=== PATIENT | female | born 1930 | race Caucasian/White ===

== ENCOUNTER 2020-08-18 13:38 | Inpatient (IN) | payer OTHER ==
--- NOTE | 2020-08-18 13:46 | PDOC ---
Rapid Medical Evaluation Medical Evaluation: 08/18/20 13:47 Pt was sent to the ER from urgent care for chest pain and shortness of breath for intermittent chest pain for the past month. New heart murmur heard in UC Exam: 2+ systolic murmur heard over the 2-3 b/l lateral rib space. S1 S2 present. RRR. Lungs CTAB Orders: labs, EKG Pt to proceed to the ER for further evaluation Discharge Disposition - Diagnosis Shortness of breath - Referrals - Patient Instructions - Post Discharge Activity
--- NOTE | 2020-08-18 15:03 | PDOC ---
History of Present Illness - General Chief Complaint: Shortness of Breath Stated Complaint: SOB Time Seen by Provider: 08/18/20 13:46 History Source: Patient Exam Limitations: No Limitations - History of Present Illness Initial Comments: 08/18/20 15:52 89F with PMH of HTN presents to the ED with worsening SOB over the past month, worse on exertion and associated with chest discomfort. She also reports worsening LE edema bilaterally. She denied fevers/chills, syncope, cough, h emoptysis, n/v, orthopnea, PND, abdominal pain. No hx/o of blood clots. PMH: as in HPI SH: see below Meds: atenolol Allergies: NKDA Tob/Etoh/Rec drugs: neg x3 PCP: none currently ROS GENERAL/CONSTITUTIONAL: No fever or chills. No weakness. HEENT: No change in vision. No ear pain or discharge. No sore throat. CARDIOVASCULAR: +chest pain, +shortness of breath RESPIRATORY: No cough, wheezing, or hemoptysis. GASTROINTESTINAL: No nausea, vomiting, diarrhea or constipation. GENITOURINARY: No dysuria, frequency, or change in urination. MUSCULOSKELETAL: No joint or muscle swelling or pain. No neck or back pain. SKIN: No rash NEUROLOGIC: No headache, vertigo, loss of consciousness, or change in strength/sensation. ENDOCRINE: No increased thirst. No abnormal weight change HEMATOLOGIC/LYMPHATIC: No anemia, easy bleeding, or history of blood clots. ALLERGIC/IMMUNOLOGIC: No hives or skin allergy. PE GENERAL: Awake, alert, and fully oriented; no acute distress HEAD: No signs of trauma, normocephalic, atraumatic EYES: PERRLA, EOMI, sclera anicteric, conjunctiva clear ENT: Auricles normal inspection, hearing grossly normal, nares patent, moist mucosa, oropharynx clear without exudates. NECK: Normal ROM, supple, no LAD, JVD, or masses HEART: Regular rate and rhythm, normal S1/S2, systolic murmur that radiates to the carotids bilaterally LUNGS: No distress, speaks full sentences, clear to auscultation bilaterally ABDOMEN: Soft, nontender. No guarding, no rebound. No masses EXTREMITIES: Normal inspection, Normal range of motion. +1 pitting edema LE bilaterally. No clubbing or cyanosis. NEUROLOGICAL: Normal speech, no focal sensorimotor deficits SKIN: Warm, Dry, normal turgor, no rashes or lesions noted Assessment and Plan 1. aortic stenosis 2. new onset CHF 2/2 3. ACS r/o 4. PE Italo Collins, PGY1 Emergency Medicine Past History - Medical History Allergies/Adverse Reactions: Allergies Allergy/AdvReac Type Severity Reaction Status Date / Time No Known Allergies Allergy Verified 08/18/20 15:44 COPD: No - Psycho-Social/Smoking History Smoking History: Never smoked Have you smoked in the past 12 months: No - Substance Abuse Hx (Audit-C & DAST Scrn) How often the patient has a drink containing alcohol: Never Score: In Men: 4 or > Positive; In Women: 3 or > Positive: 0 Screen Result (Pos requires Nsg. Audit-10AR): Negative In the last yr the pt used illegal drug/Rx for NonMed reason: No Score: Yes response is considered Positive: 0 Screen Result (Positive result requires Nsg. DAST-10): Negative *Physical Exam - Vital Signs Last Vital Signs Temp Pulse Resp BP Pulse Ox 97.6 F 77 16 167/62 100 08/18/20 13:45 08/18/20 13:45 08/18/20 13:45 08/18/20 13:45 08/18/20 13:45 ED Treatment Course - LABORATORY CBC & Chemistry Diagram: 08/18/20 15:40 08/18/20 15:40 Medical Decision Making - Medical Decision Making 08/18/20 16:03 89F with PMH of HTN presents to the ED with worsening SOB over the past month, worse on exertion and associated with chest discomfort. She also reports worsening LE edema bilaterally. No hx/o of blood clots. Systolic murmur auscultated that radiated to carotids bilaterally. DDx: 1. aortic stenosis 2. new onset CHF 2/2 - dyspnea with LE edema 3. ACS r/o - trop, EKG 4. PE - Low Risk Well's score, but not PERC neg Labs notable for: -CBC, coags, CMP unremarkable -trop neg -BNP wnl Pt will be admitted for symptomatic aortic stenosis. Discharge - Discharge Information Problems reviewed: Yes Clinical Impression/Diagnosis: Shortness of breath Aortic stenosis Qualifiers: Cardiac valve disease etiology: etiology unspecified Qualified Code(s): I35.0 - Nonrheumatic aortic (valve) stenosis Condition: Stable - Admission Yes - Follow up/Referral Referrals: Ar Martinez MD [Primary Care Provider] - - Patient Discharge Instructions - Post Discharge Activity
--- NOTE | 2020-08-18 16:18 | PDOC ---
Documentation entered by Ivett Thomas SCRIBE, acting as scribe for Emeterio Cervantes MD. Emeterio Cervantes MD: This documentation has been prepared by the Martha pablo Xhesika, SCRIBE, under my direction and personally reviewed by me in its entirety. I confirm that the documentation accurately reflects all work, treatment, procedures, and medical decision making performed by me. Attending Attestation - Resident Resident Name: Italo Collins - ED Attending Attestation I have performed the following: I have examined & evaluated the patient, The case was reviewed & discussed with the resident, I agree w/resident's findings & plan, Exceptions are as noted - HPI HPI: 08/18/20 15:52 The patient is a 89 year old female with a PMH of HTN who presents to the ED for 1 month of SOB and chest discomfort, progressively worsening. Pt also reports worsening BLE edema. The patient denies headache or dizziness. Denies fever, chills, cough, nausea, vomiting, and constipation. Denies dysuria, frequency, urgency and hematuria. Allergy: NKDA Social: Denies alcohol, cigarette or drug use. - Physicial Exam PE: 08/18/20 16:26 Vitals: Triage Vital signs reviewed General Appearance: No acute distress, well nourished well developed, Head: Atraumatic, Neck: Supple; no Nucal rigidity Chest Wall: Nontender Cardiac: Regular rate and rhythym, PRANAY Lungs: Clear to auscultation bilateral, good air movement bilaterally, Abdomen: Soft, non distended, normal bowel sounds, non tender to palpation Extremities: Full range of motion to all extremities, no cyanosis, clubbing, or edema Skin: Warm and dry, no rashes or lesions, no rash, no petechiae Psych: Normal mood, normal affect - Medical Decision Making 08/18/20 16:27 89 years old past medical history significant for hypertension presents to the ED with shortness of breath chest discomfort exertional Will admit to medicine for evaluation of aortic stenosis echo serial troponins cardiology consultation and further management. Placed Discharge - Discharge Information Problems reviewed: Yes Clinical Impression/Diagnosis: Shortness of breath Aortic stenosis Qualifiers: Cardiac valve disease etiology: etiology unspecified Qualified Code(s): I35.0 - Nonrheumatic aortic (valve) stenosis Condition: Stable Disposition: HOME - Admission No - Follow up/Referral - Patient Discharge Instructions - Post Discharge Activity
[2020-08-18 16:24] LABS: BASO % 0.4 % (0-2.0); HEMATOCRIT 39.4 % (32.4-45.2); HEMOGLOBIN 13.2 GM/dL (10.7-15.3); LYMPH % 32.8 % (8-40); MCH 30.7 pg (25.7-33.7); MCHC 33.5 g/dl (32.0-36.0); MEAN CELL VOLUME 91.7 fl (80-96); MEAN PLT VOLUME 10.1 fl (7.5-11.1); NEUT % 54.8 % (42.8-82.8); PLATELET COUNT 156 K/MM3 (134-434); RBC 4.29 M/mm3 (3.60-5.2); RDW 14.3 % (11.6-15.6); WHITE BLOOD COUNT 7.2 K/mm3 (4.0-10.0)
[2020-08-18 16:29] LABS: INR 0.97 (0.83-1.09); PROTHROMBIN TIME (PATIENT) 11.4 SEC (9.7-13.0)
[2020-08-18 16:48] LABS: ALBUMIN 3.5 g/dl (3.4-5.0); ALK PHOS 60 U/L (45-117); ANION GAP 6 MMOL/L (8-16); BLOOD UREA NITROGEN 19.2 mg/dL (7-18); CHLORIDE 106 mmol/L (98-107); CO2 29 mmol/L (21-32); GLUCOSE,RANDOM 71 mg/dL (74-106); POTASSIUM 4.1 mmol/L (3.5-5.1); SGOT/AST 18 U/L (15-37); SGPT/ALT 21 U/L (13-61); SODIUM 140 mmol/L (136-145); TOT PROT 6.9 g/dl (6.4-8.2)
[2020-08-18 17:03] LABS: BILIRUBIN,TOTAL 0.2 mg/dL (0.2-1)
[2020-08-18 17:30] LABS: N-TERMINAL BNP 438.8 pg/ml (5-450)
--- NOTE | 2020-08-18 19:32 | HP ---
CHIEF COMPLAINT: SOB and chest pain PCP: None HISTORY OF PRESENT ILLNESS: Ms. Miles is an 89F w a h/o of HTN who presents to the ED for 1 month of SOB and chest discomfort. The patient reported coming to the emergency department because she felt fatigued and her daughter advised her to arrive to the ED. The patient reports the chest pain to be substernal and without radiation. The patient reports the pain to come on only when she is walking. The patient reports that the pain resolved with rest. The patient reports that she is only capable of walking at a slow controlled pace for a few minutes and can climb a few steps but at a slow pace. The patient denies coughing and denies orthopnea. The patient denies headache or dizziness. Denies fever, chills, cough, nausea, vomiting, and constipation. Denies dysuria, frequency, urgency and hematuria. ER course was notable for: (1) CXR revealing a large hiatal hernia (2) (3) Recent Travel: denies PAST MEDICAL HISTORY: denies PAST SURGICAL HISTORY: denies Social History: Smoking:none Alcohol: none Drugs: none Allergies none No Known Allergies Allergy (Verified 08/18/20 15:44) HOME MEDICATIONS: REVIEW OF SYSTEMS CONSTITUTIONAL: Absent: fever, chills, diaphoresis, generalized weakness, malaise, loss of appetite, weight change HEENT: Absent: rhinorrhea, nasal congestion, throat pain, throat swelling, difficulty swallowing, mouth swelling, ear pain, eye pain, visual changes CARDIOVASCULAR: CP Absent: syncope, palpitations, irregular heart rate, lightheadedness, peripheral edema RESPIRATORY: Absent: cough, shortness of breath, dyspnea with exertion, orthopnea, wheezing, stridor, hemoptysis GASTROINTESTINAL: Absent: abdominal pain, abdominal distension, nausea, vomiting, diarrhea, constipation, melena, hematochezia PHYSICAL EXAMINATION Vital Signs - 24 hr 08/18/20 08/18/20 08/18/20 13:45 17:35 17:36 Temperature 97.6 F 97.8 F Pulse Rate 77 Pulse Rate [ 79 Apical] Respiratory 16 18 Rate Blood Pressure 167/62 Blood Pressure 105/59 L [Right Arm] O2 Sat by Pulse 100 100 100 Oximetry (%) GENERAL: Awake, alert, and fully oriented, in no acute distress. HEAD: Normal with no signs of trauma. LUNGS: Breath sounds equal, clear to auscultation bilaterally. No wheezes, and no crackles. No accessory muscle use. HEART: Crecendo-decrecendo murmur 1/5 heard in LORI border ABDOMEN: Soft, nontender, not distended, normoactive bowel sounds, no guarding, no rebound, no masses. No hepatomegaly or splenomegaly. UPPER EXTREMITIES: 2+ pulses, warm, well-perfused. No cyanosis. No clubbing. No peripheral edema. LOWER EXTREMITIES: 2+ pulses, warm, well-perfused. No calf tenderness. No peripheral edema. Laboratory Results - last 24 hr 08/18/20 08/18/20 08/18/20 15:40 15:40 15:40 WBC 7.2 RBC 4.29 Hgb 13.2 Hct 39.4 MCV 91.7 MCH 30.7 MCHC 33.5 RDW 14.3 Plt Count 156 MPV 10.1 Absolute Neuts (auto) 4.0 Neutrophils % 54.8 Lymphocytes % 32.8 Monocytes % 11.0 H Eosinophils % 1.0 Basophils % 0.4 Nucleated RBC % 0 PT with INR 11.40 INR 0.97 Sodium 140 Potassium 4.1 Chloride 106 Carbon Dioxide 29 Anion Gap 6 L BUN 19.2 H Creatinine 1.0 Est GFR (CKD-EPI)AfAm 58.25 Est GFR (CKD-EPI)NonAf 50.26 Random Glucose 71 L Calcium 9.0 Total Bilirubin 0.2 AST 18 ALT 21 Alkaline Phosphatase 60 Creatine Kinase 88 Troponin I < 0.02 B-Natriuretic Peptide 438.8 Total Protein 6.9 Albumin 3.5 ASSESSMENT/PLAN: Ms. Miles is an 89F w a h/o of HTN who presents to the ED for SOB and chest discomfort. The patient is admitted to the hospital for dyspnea on exertion and chest pain. #Dyspnea on exertion secondary to possible Aortic Stenosis vs acute on chronic CHF admit to tele one month of SOB and dyspnea on exertion able to walk few steps and climb a few steps before fatiguing repeat ekg consulting [facility] echo ordered Lipid panel BNP 490s will monitor for heart failure symptoms #ACS troponin negative x1 will follow up Will check TSH for reports of hair loss and weight gain #Gerd secondary to hiatal hernia ppi protonix outpatient GI referral #? HTN will monitor bp 105/59 will suggest lisinopril 10 if pressures rise A1C #DVT ppx SQ lovenox Family Medical History Family History: As Documented Visit type - Medication Review Med list reviewed for High Risk Meds patients 65 and older: Yes - Emergency Visit Emergency Visit: Yes ED Registration Date: 08/18/20 Care time: The patient presented to the Emergency Department on the above date and was hospitalized for further evaluation of their emergent condition. - New Patient This patient is new to me today: Yes Date on this admission: 08/18/20 - Critical Care Critical Care patient: No ATTENDING PHYSICIAN STATEMENT I saw and evaluated the patient. I reviewed the resident's note and discussed the case with the resident. I agree with the resident's findings and plan as documented. SUBJECTIVE: OBJECTIVE: ASSESSMENT AND PLAN:
--- NOTE | 2020-08-18 20:00 | PN ---
Teaching Attending Note Name of Resident: Momo Nguyen ATTENDING PHYSICIAN STATEMENT I saw and evaluated the patient. I reviewed the resident's note and discussed the case with the resident. I agree with the resident's findings and plan as documented. SUBJECTIVE: 89yoF with history of hypertension not on medications who presents for eval uation of progressive dyspnea on exertion and chest discomfort x1 month. Chest pain has been with exertion only. Denies palpitations, lightheadedness, syncope, orthopnea, or cough but notes recent weight gain and hair loss. She has not seen a doctor for years and is not on any medications. Patient was hemodynamically stable in the ED, in no acute distress. CXR showed large hiatal hernia, no other acute chest pathology. Labs were unremarkable including negative troponin. EKG showed sinus rhythm without acute ST or T wave changes. Admitted for further work up and management. OBJECTIVE: Vital Signs (72 hours) 08/18/20 08/18/20 08/18/20 13:45 17:35 17:36 Temperature 97.6 F 97.8 F Pulse Rate 77 Pulse Rate [ 79 Apical] Respiratory 16 18 Rate Blood Pressure 167/62 Blood Pressure 105/59 L [Right Arm] O2 Sat by Pulse 100 100 100 Oximetry (%) EXAM Gen: awake, alert, NAD. Hair appears dry and brittle HEENT: NC/AT. Moist mucous membranes CV: RRR. 3/6 systolic murmur, radiation to carotids not appreciated. No JVD Resp: CTAB, unlabored breathing Abd: Soft, NT, ND. +BS Ext: No edema Neuro: CN II-XII grossly intact Pysch: AOx3 Laboratory Results - last 24 hr 08/18/20 08/18/20 08/18/20 15:40 15:40 15:40 WBC 7.2 RBC 4.29 Hgb 13.2 Hct 39.4 MCV 91.7 MCH 30.7 MCHC 33.5 RDW 14.3 Plt Count 156 MPV 10.1 Absolute Neuts (auto) 4.0 Neutrophils % 54.8 Lymphocytes % 32.8 Monocytes % 11.0 H Eosinophils % 1.0 Basophils % 0.4 Nucleated RBC % 0 PT with INR 11.40 INR 0.97 Sodium 140 Potassium 4.1 Chloride 106 Carbon Dioxide 29 Anion Gap 6 L BUN 19.2 H Creatinine 1.0 Est GFR (CKD-EPI)AfAm 58.25 Est GFR (CKD-EPI)NonAf 50.26 Random Glucose 71 L Calcium 9.0 Total Bilirubin 0.2 AST 18 ALT 21 Alkaline Phosphatase 60 Creatine Kinase 88 Troponin I < 0.02 B-Natriuretic Peptide 438.8 Total Protein 6.9 Albumin 3.5 Imaging, EKG reviewed in chart ASSESSMENT AND PLAN: 89yoF with history of hypertension not on medications who presents for evaluation of progressive dyspnea on exertion and chest discomfort x1 month. Dyspnea on exertion, chest pain Differential includes symptomatic aortic stenosis, stable angina, and symptomatic hiatal hernia Appears euvolemic on exam, no evidence of acute heart failure Asymptomatic at rest and currently chest pain free Given rapid progression of symptoms, will obtain echo and cardiology consult; may need further work up for CAD pending results - tele - echo - check TSH - cardiology consult Hiatal hernia - trial PPI DVT ppx: Lovenox subq
[2020-08-18 22:57] LABS: CHOLESTEROL 218 mg/dL (50-200); HDL CHOLESTEROL 78 mg/dL (40-60); LDL CHOLESTEROL (ONLY SJRH) 117 mg/dL (5-100); TRIGLYCERIDES 157 mg/dL (0-150)
[2020-08-19 05:25] VITALS: BMI 26.0
[2020-08-19 08:38] LABS: BASO % 0.3 % (0-2.0); EOS % 1.1 % (0-4.5); HEMATOCRIT 37.6 % (32.4-45.2); HEMOGLOBIN 12.5 GM/dL (10.7-15.3); MCH 30.1 pg (25.7-33.7); MCHC 33.3 g/dl (32.0-36.0); MEAN CELL VOLUME 90.5 fl (80-96); MEAN PLT VOLUME 9.6 fl (7.5-11.1); MONO % 10.4 % (3.8-10.2); NEUT % 56.2 % (42.8-82.8); PLATELET COUNT 136 K/MM3 (134-434); RBC 4.15 M/mm3 (3.60-5.2); WHITE BLOOD COUNT 6.7 K/mm3 (4.0-10.0)
[2020-08-19 09:01] LABS: ALBUMIN 3.3 g/dl (3.4-5.0); BILIRUBIN,TOTAL 0.4 mg/dL (0.2-1); BLOOD UREA NITROGEN 20.2 mg/dL (7-18); CALCIUM 8.5 mg/dL (8.5-10.1); MAGNESIUM 2.3 mg/dL (1.8-2.4); PHOSPHOROUS 3.6 mg/dL (2.5-4.9); POTASSIUM 4.1 mmol/L (3.5-5.1); TOT PROT 6.4 g/dl (6.4-8.2)
--- NOTE | 2020-08-19 09:39 | EKG ---
Test Reason : Blood Pressure : / mmHG Vent. Rate : 068 BPM Atrial Rate : 068 BPM P-R Int : 142 ms QRS Dur : 078 ms QT Int : 436 ms P-R-T Axes : 038 -11 026 degrees QTc Int : 463 ms NORMAL SINUS RHYTHM NORMAL ECG WHEN COMPARED WITH ECG OF 18-AUG-2020 13:43, NO SIGNIFICANT CHANGE WAS FOUND Confirmed by Jagdeep Villa ([id number]) on 08/19/2020 9:38:42 AM Referred By: Confirmed By:Jagdeep iVlla
--- NOTE | 2020-08-19 09:42 | PN ---
Teaching Attending Note Name of Resident: Gardenia Grossman ATTENDING PHYSICIAN STATEMENT I saw and evaluated the patient. I reviewed the resident's note and discussed the case with the resident. I agree with the resident's findings and plan as documented. SUBJECTIVE: Patient is feeling better with NAD. patient's daughter at bedside. OBJECTIVE: Vital Signs Temperature 98.0 F 08/19/20 05:23 Pulse Rate 77 08/19/20 05:23 Respiratory Rate 18 08/19/20 05:23 Blood Pressure 151/78 08/19/20 05:23 O2 Sat by Pulse Oximetry (%) 100 08/19/20 05:29 PE: per resident's note CBCD WBC 6.7 K/mm3 (4.0-10.0) 08/19/20 07:56 RBC 4.15 M/mm3 (3.60-5.2) 08/19/20 07:56 Hgb 12.5 GM/dL (10.7-15.3) 08/19/20 07:56 Hct 37.6 % (32.4-45.2) 08/19/20 07:56 MCV 90.5 fl (80-96) 08/19/20 07:56 MCHC 33.3 g/dl (32.0-36.0) 08/19/20 07:56 RDW 14.0 % (11.6-15.6) 08/19/20 07:56 Plt Count 136 K/MM3 (134-434) 08/19/20 07:56 MPV 9.6 fl (7.5-11.1) 08/19/20 07:56 CMP Sodium 142 mmol/L (136-145) 08/19/20 07:56 Potassium 4.1 mmol/L (3.5-5.1) 08/19/20 07:56 Chloride 109 mmol/L (98-107) H 08/19/20 07:56 Carbon Dioxide 28 mmol/L (21-32) 08/19/20 07:56 Anion Gap 5 MMOL/L (8-16) L 08/19/20 07:56 BUN 20.2 mg/dL (7-18) H 08/19/20 07:56 Creatinine 1.0 mg/dL (0.55-1.3) 08/19/20 07:56 Random Glucose 84 mg/dL (74-106) 08/19/20 07:56 Calcium 8.5 mg/dL (8.5-10.1) 08/19/20 07:56 Total Bilirubin 0.4 mg/dL (0.2-1) 08/19/20 07:56 AST 16 U/L (15-37) 08/19/20 07:56 ALT 21 U/L (13-61) 08/19/20 07:56 Alkaline Phosphatase 47 U/L (45-117) 08/19/20 07:56 Total Protein 6.4 g/dl (6.4-8.2) 08/19/20 07:56 Albumin 3.3 g/dl (3.4-5.0) L 08/19/20 07:56 CARDIAC ENZYMES Creatine Kinase 88 U/L (26-192) 08/18/20 15:40 Troponin I < 0.02 ng/ml (0.00-0.05) 08/18/20 21:14 Current Medications Generic Name Dose Route Start Last Admin Trade Name Angelq PRN Reason Stop Dose Admin Enoxaparin Sodium 30 mg 08/19/20 10:00 Lovenox - SQ DAILY [facility] Home Medications Medication Instructions Recorded Aspirin [ASA -] 81 mg PO DAILY 08/19/20 Atenolol [Tenormin -] 50 mg PO DAILY 08/19/20 Laboratory Tests 08/18/20 08/18/20 08/19/20 15:40 21:14 07:56 Hemoglobin A1c % Troponin I < 0.02 < 0.02 Total LDL Cholesterol 117 H HDL Cholesterol 78 H TSH 12.80 H 08/19/20 07:56 Hemoglobin A1c % 5.2 Troponin I Total LDL Cholesterol HDL Cholesterol TSH ASSESSMENT AND PLAN: This patient is an 89yoF with Pmhx of HTN not on medications who presents for evaluation of progressive dyspnea on exertion and chest discomfort x1 month. # Acute over chronic Dyspnea on exertion with chest pain; most likely due to hypothyroidism , will increase the dose of levoxyl to 75mcg daily since TSh is >12 , she is on 50mcg at home #Acute chest pain r/o ACS ; trops are negative so far , cardio consult, follow the echo , discussed with Dr Morris , patient might need TAVR procedure with possible angio. with possible tx to [facility] [place] for further care #Severe Aortic stenosis #Hiatal hernia: PPI DVT ppx: Lovenox subq
--- NOTE | 2020-08-19 09:43 | EKG ---
Test Reason : Blood Pressure : / mmHG Vent. Rate : 076 BPM Atrial Rate : 076 BPM P-R Int : 142 ms QRS Dur : 076 ms QT Int : 404 ms P-R-T Axes : 053 -11 014 degrees QTc Int : 454 ms NORMAL SINUS RHYTHM POSSIBLE LEFT ATRIAL ENLARGEMENT NONSPECIFIC ST ABNORMALITY ABNORMAL ECG NO PREVIOUS ECGS AVAILABLE Confirmed by Jagdeep Villa ([id number]) on 08/19/2020 9:43:11 AM Referred By: Confirmed By:Jagdeep Villa
[2020-08-19] MEDS: ENOXAPARIN NA (PORCINE) 30 MG/0.3 ML DISP.SYRIN SQ SCH (09:48)
--- NOTE | 2020-08-19 10:26 | ECHO ---
Version: 1 Name: BRIAN LEE Exam: Adult Echocardiogram Study Date: 08/19/2020, 8:30 AM Age: 89 Years MMode/2D Measurements & Calculations IVSd: 0.98 cm LVIDs: 2.07 cm LVIDd: 2.8 cm LVPWd: 1.28 cm LAV (MOD-bp): 40.0 ml LVOT diam: 1.83 cm Ao root diam: 2.43 cm LA dimension: 2.14 cm Doppler Measurements & Calculations MV E max sohail: 84.1 cm/sec Med E/e': 27.7 MV A max sohail: 119.5 cm/sec Med Peak E' Sohail: 3.0 cm/sec MV E/A: 0.70 Lat E/e': 29.5 Lat Peak E' Sohail: 2.9 cm/sec MR max P.3 mmHg Ao max P.8 mmHg OH(I,D): 0.73 cm Ao mean P.1 mmHg LV V1 mean: 68.1 cm/sec Ao V2 max: 243.6 cm/sec LV V1 mean P.16 mmHg TR max sohail: 227.3 cm/sec TR max P.8 mmHg Procedure A two-dimensional transthoracic echocardiogram with color flow and Doppler was performed. The patien t was in normal sinus rhythm during the exam. Left Ventricle The left ventricle is normal in size. Left ventricular systolic function is normal. Ejection Fractio n = 65%. The transmitral spectral Doppler flow pattern is suggestive of impaired LV relaxation. Right Ventricle The right ventricle is normal in size and function. Atria The left atrium is moderately dilated. Right atrial size is normal. Mitral Valve There is moderate mitral annular calcification. There is mild mitral regurgitation. Tricuspid Valve The tricuspid valve is normal. There is moderate tricuspid regurgitation. Right ventricular systolic pressure is normal. Aortic Valve Fibrocalcific aortic valve with reduced opening. Likely severe aortic stenosis. The aortic valve are a using continuity equation is 0.75 cm2. However, the aortic valve mean gradient is 13 mmhg. Recommend addit ional dedicated imaging of the aortic valve if indicated. The calculated aortic valve area using the jacob nuity equation is 0.75 cm2. Trace aortic regurgitation. Pulmonic Valve The pulmonic valve leaflets are thin and pliable; valve motion is normal. Trace pulmonic valvular regurgitation. Great Vessels The aortic root is normal size. Normal aortic arch, descending and ascending aorta. Pericardium/Pleura There is no pericardial effusion. Summary Statements Left ventricular systolic function is normal. The transmitral spectral Doppler flow pattern is suggestive of impaired LV relaxation. The right ventricle is normal in size and function. The left atrium is moderately dilated. There is moderate mitral annular calcification. There is mild mitral regurgitation. There is moderate tricuspid regurgitation. Fibrocalcific aortic valve with reduced opening. Likely severe aortic stenosis. The aortic valve area using continuity equation is 0.75 cm2. However, the aortic valve mean gradient is 13 mmhg. Recommend additional dedicated imaging of the aortic valve if indicated. Trace aortic regurgitation. Trace pulmonic valvular regurgitation. MD Nabil Peterson 08/19/2020, 10:25 AM Ordering Physician: Derrick Reza Referring Physician: DERRICK REZA Performed By: Genevieve Saravia
--- NOTE | 2020-08-19 10:36 | CON.CARD ---
Consult Consult Specialty:: Cardiology - History of Present Illness History of Present Illness: Ms. Miles is an 89F w a h/o of HTN who presents to the ED for 1 month of SOB and chest discomfort. The patient reported coming to the emergency department because she felt fatigued and her daughter advised her to arrive to the ED. The patient reports the chest pain to be substernal and without radiation. The patient reports the pain to come on only when she is walking. The patient reports that the pain resolved with rest. The patient reports that she is only capable of walking at a slow controlled pace for a few minutes and can climb a few steps but at a slow pace. The patient denies coughing and denies orthopnea. The patient denies headache or dizziness. Denies fever, chills, cough, nausea, vomiting, and constipation. Denies dysuria, frequency, urgency and hematuria. - History Source History Provided By: Medical Record - Past Medical History Cardio/Vascular: Yes: HTN ...: No - Smoking History Smoking history: Never smoked Have you smoked in the past 12 months: No Home Medications - Allergies Allergies/Adverse Reactions: Allergies Allergy/AdvReac Type Severity Reaction Status Date / Time No Known Allergies Allergy Verified 08/19/20 10:31 - Home Medications Home Medications: Ambulatory Orders Aspirin [ASA -] 81 mg PO DAILY 08/19/20 Atenolol [Tenormin -] 50 mg PO DAILY 08/19/20 Review of Systems - Review of Systems Constitutional: reports: No Symptoms Eyes: reports: No Symptoms HENT: reports: No Symptoms Neck: reports: No Symptoms Cardiovascular: reports: Chest Pain Respiratory: reports: No Symptoms Gastrointestinal: reports: No Symptoms Genitourinary: reports: No Symptoms Breasts: reports: No Symptoms Reported Musculoskeletal: reports: No Symptoms Integumentary: reports: No Symptoms Neurological: reports: No Symptoms Endocrine: reports: No Symptoms Hematology/Lymphatic: reports: No Symptoms Psychiatric: reports: No Symptoms Vital Signs: Vital Signs Temperature 97.5 F L 08/19/20 08:00 Pulse Rate 75 08/19/20 08:00 Respiratory Rate 19 08/19/20 08:00 Blood Pressure 139/82 08/19/20 08:00 O2 Sat by Pulse Oximetry (%) 100 08/19/20 08:00 Constitutional: Yes: Well Nourished, No Distress, Calm Eyes: Yes: WNL, Conjunctiva Clear, EOM Intact HENT: Yes: WNL, Atraumatic, Normocephalic Neck: Yes: WNL, Supple, Trachea Midline Respiratory: Yes: WNL, Regular, CTA Bilaterally Gastrointestinal: Yes: WNL, Normal Bowel Sounds Renal/: Yes: WNL Cardiovascular: Yes: WNL, Regular Rate and Rhythm Heart Sounds: Yes: S1, S2 Murmur: Yes: Systolic Murmur Musculoskeletal: Yes: WNL Extremities: Yes: WNL Integumentary: Yes: WNL Neurological: Yes: WNL, Alert, Oriented ...Motor Strength: WNL Psychiatric: Yes: WNL, Alert, Oriented - Other Data Labs, Other Data: CBC, BMP 08/19/20 07:56 08/19/20 07:56 INR, PTT INR 0.97 (0.83-1.09) 08/18/20 15:40 Troponin, BNP 08/18/20 08/18/20 15:40 21:14 Troponin I < 0.02 < 0.02 B-Natriuretic Peptide 438.8 Troponin, BNP 08/18/20 08/18/20 15:40 21:14 Troponin I < 0.02 < 0.02 B-Natriuretic Peptide 438.8 Imaging - Results Chest X-ray: Image Reviewed (hiatal hernia no i/e) EKG: Image Reviewed (sr wnl) Other: Report Reviewed (ECHO nl ef most likely severe OH 0.75 mean gradient 14mmhg) Problem List - Problems (1) Aortic stenosis Code(s): I35.0 - NONRHEUMATIC AORTIC (VALVE) STENOSIS Qualifiers: Cardiac valve disease etiology: etiology unspecified Qualified Code(s): I35.0 - Nonrheumatic aortic (valve) stenosis (2) Shortness of breath Code(s): R06.02 - SHORTNESS OF BREATH Assessment/Plan 89F w a h/o of HTN who presents to the ED for 1 month of SOB and chest discomfort. Diagnosed with hypothyroidism. EKG WNL BNP nl CE nl CXR large hiatal hernia ECHO ? severe however mean gradient 14 mmHG PLan; Rx for hypothyroidism Will review ECHO DVT PLX May need risk stratification with a stress test if not done recently
[2020-08-19] MEDS ORDERED: LEVOTHYROXINE NA 25 MCG TABLET (FP) PO ONE (12:15)
[2020-08-19] MEDS: PANTOPRAZOLE SODIUM 40 MG VIAL IVPUSH SCH (12:35)
--- NOTE | 2020-08-19 12:52 | PN ---
Progress Note, Physician Chief Complaint: Pt A&Ox3; "independent"; walks to bathroom on her own, but says even this short distance maker her short of breath and mild chest tightness. History of Present Illness: Ms. Miles is an 89 yr old woman (b. [facility]) w a h/o of HTN, CHF, hypothyroid, HLD, hiatal hernia, who presents to the ED for 1 month of SOB and chest discomfort. The patient reported coming to the emergency department because she felt fatigued and her daughter advised her to arrive to the ED. The patient reports the chest pain to be substernal and without radiation. The patient reports the pain to come on only when she is walking. The patient reports that the pain resolved with rest. The patient reports that she is only capable of walking at a slow controlled pace for a few minutes and can climb a few steps but at a slow pace. The patient denies coughing and denies orthopnea. The patient denies headache or dizziness. Denies fever, chills, cough, nausea, vomiting, and constipation. Denies dysuria, frequency, urgency and hematuria. - Current Medication List Current Medications: Active Medications Atorvastatin Calcium (Lipitor -) 20 mg PO HS [facility] Enoxaparin Sodium (Lovenox -) 30 mg SQ DAILY [facility] Last Admin: 08/19/20 09:48 Dose: 30 mg Documented by: Levothyroxine Sodium (Synthroid -) 25 mcg PO DAILY@0700 [facility] Pantoprazole Sodium (Protonix Iv) 40 mg IVPUSH DAILY [facility] Last Admin: 08/19/20 12:35 Dose: 40 mg Documented by: - Objective Vital Signs: Vital Signs Temperature 97.5 F L 08/19/20 08:00 Pulse Rate 75 08/19/20 08:00 Respiratory Rate 19 08/19/20 09:00 Blood Pressure 139/82 08/19/20 08:00 O2 Sat by Pulse Oximetry (%) 100 08/19/20 09:00 Constitutional: Yes: Calm Eyes: Yes: WNL HENT: Yes: WNL Neck: Yes: WNL Cardiovascular: Yes: Regular Rate and Rhythm, Murmur (3/6 PRANAY, RSB-->left axilla), S1, S2, S4 Respiratory: Yes: Regular Gastrointestinal: Yes: Soft ...Rectal Exam: Yes: Deferred Genitourinary: No: Anuria Extremities: Yes: Cool Edema: No Peripheral Pulses WNL: Yes Integumentary: Yes: WNL Neurological: Yes: WNL Psychiatric: Yes: WNL Labs: CBC, BMP 08/19/20 07:56 08/19/20 07:56 INR, PTT INR 0.97 (0.83-1.09) 08/18/20 15:40 Abnormal Lab Results 08/19/20 08/19/20 07:56 07:56 Monocytes % 10.4 H Chloride 109 H Anion Gap 5 L BUN 20.2 H Albumin 3.3 L TSH 12.80 H Free T4 0.64 L - ....Imaging Chest X-ray: Image Reviewed Ultrasound: Report Reviewed (ECHO) Assessment/Plan Ms. Miles is an 89 yr old woman w a h/o of HTN, HDL, hypothyroidism, who presents to the ED for 1 month of SOB and chest discomfort. EKG WNL BNP nl CE nl CXR large hiatal hernia ECHO ? severe ; however, mean gradient 14 mmHG PLan: On Synthroid. Will review ECHO DVT PLX May need risk stratification with a stress test (or CTA or coronary angiogram, if is severe and if TAVR is a consideration), if not done recently.
--- NOTE | 2020-08-19 13:31 | EKG ---
Test Reason : Blood Pressure : / mmHG Vent. Rate : 082 BPM Atrial Rate : 082 BPM P-R Int : 130 ms QRS Dur : 078 ms QT Int : 390 ms P-R-T Axes : 035 -24 001 degrees QTc Int : 455 ms NORMAL SINUS RHYTHM NORMAL ECG WHEN COMPARED WITH ECG OF 18-AUG-2020 21:59, NO SIGNIFICANT CHANGE WAS FOUND Confirmed by Jagdeep Villa ([id number]) on 08/19/2020 1:31:08 PM Referred By: Jesi DE JESUS Confirmed By:Jagdeep Villa
--- NOTE | 2020-08-19 16:46 | PN ---
Physical Exam: SUBJECTIVE: Patient seen and examined at bedside. She reports chest pain and SOB on exertion, along with occasional left hand numbness. Denies any resting chest pain, SOB, orthopnea, fever, chills, nausea, vomiting OBJECTIVE: Vital Signs Period Temp Pulse Resp BP Sys/Mcmahon Pulse Ox Last 24 Hr 97.1 F-98.0 F 72-95 18-19 105-151/59-82 99-100 GENERAL: AAOx3, in no acute distress HEENT: NCAT, PERRLA, EOMI, sclera anicteric, conjunctiva clear, oropharynx clear w/o exudates. MMM. NECK: Normal ROM, supple, no lymphadenopathy, JVD, or masses LUNGS: CTABL no wheezes/ rhonchi/ rales. No distress, speaks in full sentences. No increased work of breathing. HEART: RRR, normal S1 S2, 3/6 systolic ejection murmur, radiating to carotids. no /R/G, peripheral pulses 2+ and equal b/l ABDOMEN: Soft, non-tender, + BS. No guarding or rebound. MSK: ROM WNL, NO CVA tenderness EXTREMITIES: Normal inspection. No peripheral edema. No clubbing or cyanosis. NEUROLOGICAL: CN II-XII intact. Normal speech, gait not observed, no focal sensorimotor deficits. PSYCH: Normal mood, normal affect. SKIN: Warm, Dry, normal turgor, no rashes or lesions noted Laboratory Results - last 24 hr 08/18/20 08/18/20 08/18/20 15:40 15:40 15:40 WBC 7.2 RBC 4.29 Hgb 13.2 Hct 39.4 MCV 91.7 MCH 30.7 MCHC 33.5 RDW 14.3 Plt Count 156 MPV 10.1 Absolute Neuts (auto) 4.0 Neutrophils % 54.8 Lymphocytes % 32.8 Monocytes % 11.0 H Eosinophils % 1.0 Basophils % 0.4 Nucleated RBC % 0 PT with INR 11.40 INR 0.97 Sodium 140 Potassium 4.1 Chloride 106 Carbon Dioxide 29 Anion Gap 6 L BUN 19.2 H Creatinine 1.0 Est GFR (CKD-EPI)AfAm 58.25 Est GFR (CKD-EPI)NonAf 50.26 Random Glucose 71 L Hemoglobin A1c % Calcium 9.0 Phosphorus Magnesium Total Bilirubin 0.2 AST 18 ALT 21 Alkaline Phosphatase 60 Creatine Kinase 88 Troponin I < 0.02 B-Natriuretic Peptide 438.8 Total Protein 6.9 Albumin 3.5 Triglycerides Cholesterol Total LDL Cholesterol HDL Cholesterol TSH Free T4 08/18/20 08/19/20 08/19/20 21:14 07:56 07:56 WBC 6.7 RBC 4.15 Hgb 12.5 Hct 37.6 MCV 90.5 MCH 30.1 MCHC 33.3 RDW 14.0 Plt Count 136 MPV 9.6 Absolute Neuts (auto) 3.8 Neutrophils % 56.2 Lymphocytes % 32.0 Monocytes % 10.4 H Eosinophils % 1.1 Basophils % 0.3 Nucleated RBC % 0 PT with INR INR Sodium 142 Potassium 4.1 Chloride 109 H Carbon Dioxide 28 Anion Gap 5 L BUN 20.2 H Creatinine 1.0 Est GFR (CKD-EPI)AfAm 58.25 Est GFR (CKD-EPI)NonAf 50.26 Random Glucose 84 Hemoglobin A1c % Calcium 8.5 Phosphorus 3.6 Magnesium 2.3 Total Bilirubin 0.4 AST 16 ALT 21 Alkaline Phosphatase 47 Creatine Kinase Troponin I < 0.02 B-Natriuretic Peptide Total Protein 6.4 Albumin 3.3 L Triglycerides 157 H Cholesterol 218 H Total LDL Cholesterol 117 H HDL Cholesterol 78 H TSH 12.80 H Free T4 0.64 L 08/19/20 07:56 WBC RBC Hgb Hct MCV MCH MCHC RDW Plt Count MPV Absolute Neuts (auto) Neutrophils % Lymphocytes % Monocytes % Eosinophils % Basophils % Nucleated RBC % PT with INR INR Sodium Potassium Chloride Carbon Dioxide Anion Gap BUN Creatinine Est GFR (CKD-EPI)AfAm Est GFR (CKD-EPI)NonAf Random Glucose Hemoglobin A1c % 5.2 Calcium Phosphorus Magnesium Total Bilirubin AST ALT Alkaline Phosphatase Creatine Kinase Troponin I B-Natriuretic Peptide Total Protein Albumin Triglycerides Cholesterol Total LDL Cholesterol HDL Cholesterol TSH Free T4 Active Medications Generic Name Dose Route Start Last Admin Trade Name Freq PRN Reason Stop Dose Admin Atorvastatin Calcium 20 mg 08/19/20 22:00 Lipitor - PO HS [facility] Enoxaparin Sodium 30 mg 08/19/20 10:00 08/19/20 09:48 Lovenox - SQ 30 mg DAILY [facility] Administration Levothyroxine Sodium 50 mcg 08/20/20 07:00 Synthroid - PO DAILY@0700 [facility] Pantoprazole Sodium 40 mg 08/19/20 12:15 08/19/20 12:35 Protonix Iv IVPUSH 40 mg DAILY [facility] Administration ASSESSMENT/PLAN: 89 F with a PMH of HTN, hypothyroidism, presented to the ED for SOB and chest pain on exertion, admitted for acute on chronic dyspnea. #Acute on Chronic dyspnea on exertion - likely 2/2 chronic hypothyroidism vs aortic stenosis or combination of both - ECHO: EF 65%, Fibrocalcified aortic valve- severe , mean gradient 14mmhg - TSH 12.8, FT4 0.64: home med, Levothyroxine 50 mcg increased to 75 mcg - Cardiology is following, Dr. whatley, recs appreciated May need risk stratification with a stress test (or CTA or coronary angiogram, if is severe) if not done recently #Acute chest pain, r/o ACS - Trop negative x 2 - Echo: notes - Cardio is following - CXR: Hiatal hernia - will continue to monitor DVT ppx - Lovenox sq FEN - No standing fluids - Continue to monitor electrolytes - Sodium controlled Diet Dispo - Continue to monitor in [place], will f/u with further recs from cardiology Visit type - Emergency Visit Emergency Visit: Yes ED Registration Date: 08/18/20 Care time: The patient presented to the Emergency Department on the above date and was hospitalized for further evaluation of their emergent condition. - New Patient This patient is new to me today: No - Critical Care Critical Care patient: No - Discharge Referral Referred to [facility] Med P.C.: No - Medication Review Med list reviewed for High Risk Meds patients 65 and older: Yes ATTENDING PHYSICIAN STATEMENT I saw and evaluated the patient. I reviewed the resident's note and discussed the case with the resident. I agree with the resident's findings and plan as documented. SUBJECTIVE: OBJECTIVE: ASSESSMENT AND PLAN:
[2020-08-19] MEDS: ATORVASTATIN CA 20 MG TABLET (FP) PO SCH (21:19)
[2020-08-20 06:39] LABS: BASO % 0.5 % (0-2.0); EOS % 1.5 % (0-4.5); HEMATOCRIT 37.2 % (32.4-45.2); HEMOGLOBIN 12.5 GM/dL (10.7-15.3); LYMPH % 44.2 % (8-40); MCH 30.8 pg (25.7-33.7); MCHC 33.6 g/dl (32.0-36.0); MEAN CELL VOLUME 91.9 fl (80-96); MEAN PLT VOLUME 9.4 fl (7.5-11.1); MONO % 9.8 % (3.8-10.2); PLATELET COUNT 131 K/MM3 (134-434); RBC 4.05 M/mm3 (3.60-5.2)
[2020-08-20 06:46] LABS: ALBUMIN 3.2 g/dl (3.4-5.0); BILIRUBIN,TOTAL 0.4 mg/dL (0.2-1); BLOOD UREA NITROGEN 15.3 mg/dL (7-18); CALCIUM 8.8 mg/dL (8.5-10.1); CREATININE 1.2 mg/dL (0.55-1.3); MAGNESIUM 2.3 mg/dL (1.8-2.4); PHOSPHOROUS 3.4 mg/dL (2.5-4.9); POTASSIUM 4.3 mmol/L (3.5-5.1); TOT PROT 6.5 g/dl (6.4-8.2)
[2020-08-20] MEDS ORDERED: LEVOTHYROXINE NA 50 MCG TABLET (FP) PO SCH ×2 (07:00→12:18)
[2020-08-20] MEDS ORDERED: LEVOTHYROXINE NA 100 MCG TABLET (FP) PO SCH (07:00)
[2020-08-20] MEDS ORDERED: LEVOTHYROXINE NA 25 MCG TABLET (FP) PO SCH (07:00)
[2020-08-20] MEDS ORDERED: LEVOTHYROXINE NA 75 MCG TABLET (FP) PO SCH (07:00)
--- NOTE | 2020-08-20 08:49 | PN ---
Progress Note, Physician History of Present Illness: Ms. Miles is an 89F w a h/o of HTN who presents to the ED for 1 month of SOB and chest discomfort. The patient reported coming to the emergency department because she felt fatigued and her daughter advised her to arrive to the ED. The patient reports the chest pain to be substernal and without radiation. The patient reports the pain to come on only when she is walking. The patient repo rts that the pain resolved with rest. The patient reports that she is only capable of walking at a slow controlled pace for a few minutes and can climb a few steps but at a slow pace. The patient denies coughing and denies orthopnea. The patient denies headache or dizziness. Denies fever, chills, cough, nausea, vomiting, and constipation. Denies dysuria, frequency, urgency and hematuria. - Current Medication List Current Medications: Active Medications Atorvastatin Calcium (Lipitor -) 20 mg PO HS [facility] Last Admin: 08/19/20 21:19 Dose: 20 mg Documented by: Enoxaparin Sodium (Lovenox -) 30 mg SQ DAILY [facility] Last Admin: 08/19/20 09:48 Dose: 30 mg Documented by: Levothyroxine Sodium (Synthroid -) 75 mcg PO DAILY@0700 [facility] Last Admin: 08/20/20 06:00 Dose: 75 mcg Documented by: Pantoprazole Sodium (Protonix Iv) 40 mg IVPUSH DAILY [facility] Last Admin: 08/19/20 12:35 Dose: 40 mg Documented by: - Objective Vital Signs: Vital Signs Temperature 97.6 F 08/20/20 06:00 Pulse Rate 77 08/20/20 06:00 Respiratory Rate 18 08/20/20 06:00 Blood Pressure 133/79 08/20/20 06:00 O2 Sat by Pulse Oximetry (%) 98 08/20/20 06:00 Eyes: Yes: WNL, Conjunctiva Clear, EOM Intact HENT: Yes: WNL, Atraumatic, Normocephalic Neck: Yes: WNL, Supple, Trachea Midline Cardiovascular: Yes: WNL, Regular Rate and Rhythm, Murmur Respiratory: Yes: WNL, Regular, CTA Bilaterally Gastrointestinal: Yes: WNL, Normal Bowel Sounds Genitourinary: Yes: WNL Musculoskeletal: Yes: WNL Extremities: Yes: WNL Edema: No Integumentary: Yes: WNL Neurological: Yes: WNL, Alert, Oriented ...Motor Strength: WNL Psychiatric: Yes: WNL Labs: CBC, BMP 08/20/20 06:00 08/20/20 06:00 INR, PTT INR 0.97 (0.83-1.09) 08/18/20 15:40 Problem List - Problems (1) Aortic stenosis Code(s): I35.0 - NONRHEUMATIC AORTIC (VALVE) STENOSIS Qualifiers: Cardiac valve disease etiology: etiology unspecified Qualified Code(s): I35.0 - Nonrheumatic aortic (valve) stenosis (2) Shortness of breath Code(s): R06.02 - SHORTNESS OF BREATH Assessment/Plan Ms. Miles is an 89 yr old woman w a h/o of HTN, HDL, hypothyroidism, who presents to the ED for 1 month of SOB and chest discomfort. EKG WNL BNP nl CE nl CXR large hiatal hernia ECHO ? severe ; however, mean gradient 14 mmHG PLan: On Synthroid. Will review ECHO DVT PLX May need risk stratification with a stress test (or CTA or coronary angiogram, if is severe and if TAVR is a consideration), if not done recently.
[2020-08-20 09:07] LABS: EPI CELLS 21 /uL (0-25.1); HYALINE CASTS 2 /uL (0-3.1); PH,URINE 7.5 (5.0-8.0); URINE APPEARANCE CLOUDY; URINE BACTERIA >9,000 /uL (0-1359); URINE BILIRUBIN NEGATIVE (NEGATIVE); URINE COLOR YELLOW; URINE GLUCOSE (UA) NEGATIVE (NEGATIVE); URINE KETONE NEGATIVE (NEGATIVE); URINE LEUK ESTERASE 3+ (NEGATIVE); URINE NITRITE NEGATIVE (NEGATIVE); URINE PROTEIN NEGATIVE (NEGATIVE); URINE RBC 8 /uL (0-23.9); URINE UROBILINOGEN 0.2 mg/dL (0.2-1.0); URINE WBC 347 /uL (0-25.8)
--- NOTE | 2020-08-20 09:13 | PN ---
Teaching Attending Note Name of Resident: Gardenia Grossman ATTENDING PHYSICIAN STATEMENT I saw and evaluated the patient. I reviewed the resident's note and discussed the case with the resident. I agree with the resident's findings and plan as documented. SUBJECTIVE: Patient is feeling better no further chest pressure. OBJECTIVE: Vital Signs Temperature 97.6 F 08/20/20 06:00 Pulse Rate 77 08/20/20 06:00 Respiratory Rate 18 08/20/20 06:00 Blood Pressure 133/79 08/20/20 06:00 O2 Sat by Pulse Oximetry (%) 98 08/20/20 06:00 PE: per resident's note CBCD WBC 6.0 K/mm3 (4.0-10.0) 08/20/20 06:00 RBC 4.05 M/mm3 (3.60-5.2) 08/20/20 06:00 Hgb 12.5 GM/dL (10.7-15.3) 08/20/20 06:00 Hct 37.2 % (32.4-45.2) 08/20/20 06:00 MCV 91.9 fl (80-96) 08/20/20 06:00 MCHC 33.6 g/dl (32.0-36.0) 08/20/20 06:00 RDW 14.0 % (11.6-15.6) 08/20/20 06:00 Plt Count 131 K/MM3 (134-434) L 08/20/20 06:00 MPV 9.4 fl (7.5-11.1) 08/20/20 06:00 CMP Sodium 143 mmol/L (136-145) 08/20/20 06:00 Potassium 4.3 mmol/L (3.5-5.1) 08/20/20 06:00 Chloride 109 mmol/L (98-107) H 08/20/20 06:00 Carbon Dioxide 30 mmol/L (21-32) 08/20/20 06:00 Anion Gap 4 MMOL/L (8-16) L 08/20/20 06:00 BUN 15.3 mg/dL (7-18) 08/20/20 06:00 Creatinine 1.2 mg/dL (0.55-1.3) 08/20/20 06:00 Random Glucose 83 mg/dL (74-106) 08/20/20 06:00 Calcium 8.8 mg/dL (8.5-10.1) 08/20/20 06:00 Total Bilirubin 0.4 mg/dL (0.2-1) 08/20/20 06:00 AST 15 U/L (15-37) 08/20/20 06:00 ALT 18 U/L (13-61) 08/20/20 06:00 Alkaline Phosphatase 51 U/L (45-117) 08/20/20 06:00 Total Protein 6.5 g/dl (6.4-8.2) 08/20/20 06:00 Albumin 3.2 g/dl (3.4-5.0) L 08/20/20 06:00 CARDIAC ENZYMES Creatine Kinase 88 U/L (26-192) 08/18/20 15:40 Troponin I < 0.02 ng/ml (0.00-0.05) 08/18/20 21:14 Current Medications Generic Name Dose Route Start Last Admin Trade Name Freq PRN Reason Stop Dose Admin Atorvastatin Calcium 20 mg 08/19/20 22:00 08/19/20 21:19 Lipitor - PO 20 mg HS [facility] Administration Enoxaparin Sodium 30 mg 08/19/20 10:00 08/19/20 09:48 Lovenox - SQ 30 mg DAILY [facility] Administration Levothyroxine Sodium 75 mcg 08/20/20 07:00 08/20/20 06:00 Synthroid - PO 75 mcg DAILY@0700 [facility] Administration Pantoprazole Sodium 40 mg 08/19/20 12:15 08/19/20 12:35 Protonix Iv IVPUSH 40 mg DAILY [facility] Administration Laboratory Tests 08/18/20 08/18/20 08/19/20 15:40 21:14 06:00 Hemoglobin A1c % Troponin I < 0.02 < 0.02 Triglycerides 157 H Cholesterol 218 H Total LDL Cholesterol 117 H HDL Cholesterol 78 H TSH Free T4 Thyroglobulin Antibody Thyroid Peroxidase Ab COVID-19 ([facility]) Not detected 08/19/20 08/19/20 08/20/20 07:56 07:56 06:00 Hemoglobin A1c % 5.2 Troponin I Triglycerides Cholesterol Total LDL Cholesterol HDL Cholesterol TSH 12.80 H Free T4 0.64 L Thyroglobulin Antibody 3.4 H Thyroid Peroxidase Ab 117 H COVID-19 ([facility]) ASSESSMENT AND PLAN: This patient is an 89yoF with Pmhx of HTN not on medications who presents for evaluation of progressive dyspnea on exertion and chest discomfort x1 month. # Acute over chronic Dyspnea on exertion with chest pain; most likely due to hypothyroidism , will continue with levoxyl 50mcg since the patient has not been taking her thyroid medicatios , will need to re-evaluate her thyroid function after 6 weeks to reassess whether higher dose of levoxyl needed or not. TSh is >12. #Acute chest pain r/o ACS ; trops are negative so far , cardio consult; echo reports severe stenosis, discussed with cardio will have another echo done in am to access severity of the stenosis. discussed with Dr Morris , patient might need TAVR procedure with possible angio. with possible tx to [facility] for further care, as per cardio ; May need risk stratification with a stress test (or CTA or coronary angiogram, and if TAVR is a consideration0. #Severe Aortic stenosis on the echo. 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
[2020-08-20] MEDS: PANTOPRAZOLE SODIUM 40 MG VIAL IVPUSH SCH (09:23)
[2020-08-20] MEDS: ENOXAPARIN NA (PORCINE) 30 MG/0.3 ML DISP.SYRIN SQ SCH (09:23)
--- NOTE | 2020-08-20 17:05 | PN ---
Physical Exam: SUBJECTIVE: Patient seen and examined at bedside, she was eating her breakfast. She denies any active chest pain or sob, reports that she feels well today. OBJECTIVE: Vital Signs Period Temp Pulse Resp BP Sys/Mcmahon Pulse Ox Last 24 Hr 97.5 F-98.6 F 75-102 18-20 106-143/57-79 97-100 GENERAL: AAOx3, in no acute distress HEENT: NCAT, PERRLA, EOMI, sclera anicteric, conjunctiva clear, oropharynx clear w/o exudates. MMM. NECK: Normal ROM, supple, no lymphadenopathy, JVD, or masses LUNGS: CTABL no wheezes/ rhonchi/ rales. No distress, speaks in full sentences. No increased work of breathing. HEART: RRR, normal S1 S2, 3/6 systolic ejection murmur, radiating to carotids. no /R/G, peripheral pulses 2+ and equal b/l ABDOMEN: Soft, non-tender, + BS. No guarding or rebound. MSK: ROM WNL, NO CVA tenderness EXTREMITIES: Normal inspection. No peripheral edema. No clubbing or cyanosis. NEUROLOGICAL: CN II-XII intact. Normal speech, gait not observed, no focal sensorimotor deficits. PSYCH: Normal mood, normal affect. SKIN: Warm, Dry, normal turgor, no rashes or lesions noted Laboratory Results - last 24 hr 08/19/20 08/20/20 08/20/20 06:00 05:50 06:00 WBC 6.0 RBC 4.05 Hgb 12.5 Hct 37.2 MCV 91.9 MCH 30.8 MCHC 33.6 RDW 14.0 Plt Count 131 L MPV 9.4 Absolute Neuts (auto) 2.6 Neutrophils % 44.0 D Lymphocytes % 44.2 H D Monocytes % 9.8 Eosinophils % 1.5 Basophils % 0.5 Nucleated RBC % 0 Sodium Potassium Chloride Carbon Dioxide Anion Gap BUN Creatinine Est GFR (CKD-EPI)AfAm Est GFR (CKD-EPI)NonAf Random Glucose Calcium Phosphorus Magnesium Total Bilirubin AST ALT Alkaline Phosphatase Total Protein Albumin Urine Color Yellow Urine Appearance Cloudy Urine pH 7.5 Ur Specific [place] 1.019 Urine Protein Negative Urine Glucose (UA) Negative Urine Ketones Negative Urine Blood Negative Urine Nitrite Negative Urine Bilirubin Negative Urine Urobilinogen 0.2 Ur Leukocyte Esterase 3+ H Urine WBC (Auto) 347 Urine RBC (Auto) 8 Urine Casts (Auto) 2 U Epithel Cells (Auto) 21 Urine Bacteria (Auto) >9,000 COVID-19 (AVEL) Not detected 08/20/20 06:00 WBC RBC Hgb Hct MCV MCH MCHC RDW Plt Count MPV Absolute Neuts (auto) Neutrophils % Lymphocytes % Monocytes % Eosinophils % Basophils % Nucleated RBC % Sodium 143 Potassium 4.3 Chloride 109 H Carbon Dioxide 30 Anion Gap 4 L BUN 15.3 Creatinine 1.2 Est GFR (CKD-EPI)AfAm 46.73 Est GFR (CKD-EPI)NonAf 40.32 Random Glucose 83 Calcium 8.8 Phosphorus 3.4 Magnesium 2.3 Total Bilirubin 0.4 AST 15 ALT 18 Alkaline Phosphatase 51 Total Protein 6.5 Albumin 3.2 L Urine Color Urine Appearance Urine pH Ur Specific [place] Urine Protein Urine Glucose (UA) Urine Ketones Urine Blood Urine Nitrite Urine Bilirubin Urine Urobilinogen Ur Leukocyte Esterase Urine WBC (Auto) Urine RBC (Auto) Urine Casts (Auto) U Epithel Cells (Auto) Urine Bacteria (Auto) COVID-19 (AVEL) Active Medications Generic Name Dose Route Start Last Admin Trade Name Freq PRN Reason Stop Dose Admin Atorvastatin Calcium 20 mg 08/19/20 22:00 08/19/20 21:19 Lipitor - PO 20 mg HS OH Administration Enoxaparin Sodium 30 mg 08/19/20 10:00 08/20/20 09:23 Lovenox - SQ 30 mg DAILY OH Administration Levothyroxine Sodium 50 mcg 08/20/20 12:18 Synthroid - PO DAILY@0700 OH Pantoprazole Sodium 40 mg 08/19/20 12:15 08/20/20 09:23 Protonix Iv IVPUSH 40 mg DAILY OH Administration ASSESSMENT/PLAN: 89 F with a PMH of HTN, hypothyroidism, presented to the ED for SOB and chest pain on exertion, admitted for acute on chronic dyspnea. #Acute on Chronic dyspnea on exertion - likely 2/2 chronic hypothyroidism vs aortic stenosis or combination of both - ECHO: EF 65%, Fibrocalcified aortic valve- severe , mean gradient 14mmhg - TSH 12.8, FT4 0.64: Continue home med, Levothyroxine 50 mcg - Cardiology is following, Dr. whatley, recs appreciated May need risk stratification with a stress test (or CTA or coronary angiogram, if is severe) if not done recently patient might need TAVR procedure with possible angio. with possible tx to [place] for further care #Ua suggestive of UTI - Ua LE 3+, WBC 347, Bacteria >9,000, Ucx: pending, No leukocytosis, afibrile and hemodynamically stable - we will wait for Ucx before starting antibiotics #Acute chest pain, r/o ACS - Trop negative x 2 - Echo: notes - Cardio is following - CXR: Hiatal hernia - will continue to monitor DVT ppx - Lovenox sq GI ppx: Protonix 40 mg IV FEN - No standing fluids - Continue to monitor electrolytes - Sodium controlled Diet Dispo - Will continue to monitor in Tele Visit type - Emergency Visit Emergency Visit: Yes ED Registration Date: 08/18/20 Care time: The patient presented to the Emergency Department on the above date and was hospitalized for further evaluation of their emergent condition. - New Patient This patient is new to me today: No - Critical Care Critical Care patient: No - Discharge Referral Referred to [facility] Med P.C[facility] No - Medication Review Med list reviewed for High Risk Meds patients 65 and older: Yes ATTENDING PHYSICIAN STATEMENT I saw and evaluated the patient. I reviewed the resident's note and discussed the case with the resident. I agree with the resident's findings and plan as documented. SUBJECTIVE: OBJECTIVE: ASSESSMENT AND PLAN:
[2020-08-20 20:15] LABS: EPI CELLS 15 /uL (0-25.1); HYALINE CASTS 1 /uL (0-3.1); URINE APPEARANCE CLEAR; URINE BACTERIA 449 /uL (0-1359); URINE BILIRUBIN NEGATIVE (NEGATIVE); URINE COLOR YELLOW; URINE GLUCOSE (UA) NEGATIVE (NEGATIVE); URINE KETONE NEGATIVE (NEGATIVE); URINE LEUK ESTERASE 2+ (NEGATIVE); URINE NITRITE NEGATIVE (NEGATIVE); URINE PROTEIN NEGATIVE (NEGATIVE); URINE RBC 9 /uL (0-23.9); URINE UROBILINOGEN 0.2 mg/dL (0.2-1.0); URINE WBC 158 /uL (0-25.8)
[2020-08-20] MEDS: ATORVASTATIN CA 20 MG TABLET (FP) PO SCH (21:41)
[2020-08-21 06:58] LABS: BASO % 0.3 % (0-2.0); EOS % 1.1 % (0-4.5); HEMATOCRIT 34.8 % (32.4-45.2); HEMOGLOBIN 11.6 GM/dL (10.7-15.3); LYMPH % 37.8 % (8-40); MCH 30.1 pg (25.7-33.7); MCHC 33.2 g/dl (32.0-36.0); MEAN CELL VOLUME 90.6 fl (80-96); MEAN PLT VOLUME 9.4 fl (7.5-11.1); MONO % 10.5 % (3.8-10.2); NEUT % 50.3 % (42.8-82.8); PLATELET COUNT 130 K/MM3 (134-434); RBC 3.84 M/mm3 (3.60-5.2); WHITE BLOOD COUNT 6.2 K/mm3 (4.0-10.0)
[2020-08-21 07:26] LABS: ALBUMIN 3.2 g/dl (3.4-5.0); BLOOD UREA NITROGEN 13.6 mg/dL (7-18); CALCIUM 8.2 mg/dL (8.5-10.1); MAGNESIUM 2.2 mg/dL (1.8-2.4); PHOSPHOROUS 3.5 mg/dL (2.5-4.9); POTASSIUM 3.7 mmol/L (3.5-5.1); TOT PROT 6.1 g/dl (6.4-8.2)
[2020-08-21 07:43] LABS: BILIRUBIN,TOTAL 0.3 mg/dL (0.2-1)
[2020-08-21] MEDS: ENOXAPARIN NA (PORCINE) 30 MG/0.3 ML DISP.SYRIN SQ SCH (10:01)
[2020-08-21] MEDS: PANTOPRAZOLE SODIUM 40 MG VIAL IVPUSH SCH (10:01)
--- NOTE | 2020-08-21 12:12 | PN ---
Progress Note, Physician Chief Complaint: Pt A&Ox3; had mild-moderate chest tightness again last night that lasted for a minute. Pt says "I'm old, and don't know if I should have an operation". History of Present Illness: Ms. Miles is an 89 yr old woman (b. [facility]) w a h/o of HTN, CHF, hypothyroid, HLD, hiatal hernia, who presents to the ED for 1 month of SOB and chest discomfort. The patient reported coming to the emergency department because she felt fatigued and her daughter advised her to arrive to the ED. The patient reports the chest pain to be substernal and without radiation. The patient reports the pain to come on only when she is walking. The patient reports that the pain resolved with rest. The patient reports that she is only capable of walking at a slow controlled pace for a few minutes and can climb a few steps but at a slow pace. The patient denies coughing and denies orthopnea. The patient denies headache or dizziness. Denies fever, chills, cough, nausea, vomiting, and constipation. Denies dysuria, frequency, urgency and hematuria. - Current Medication List Current Medications: Active Medications Atorvastatin Calcium (Lipitor -) 20 mg PO HS [facility] Last Admin: 08/20/20 21:41 Dose: 20 mg Documented by: Enoxaparin Sodium (Lovenox -) 30 mg SQ DAILY [facility] Last Admin: 08/21/20 10:01 Dose: 30 mg Documented by: Levothyroxine Sodium (Synthroid -) 50 mcg PO DAILY@0700 [facility] Last Admin: 08/21/20 06:03 Dose: 50 mcg Documented by: Pantoprazole Sodium (Protonix Iv) 40 mg IVPUSH DAILY [facility] Last Admin: 08/21/20 10:01 Dose: 40 mg Documented by: - Objective Vital Signs: Vital Signs Temperature 98.1 F 08/21/20 10:05 Pulse Rate 90 08/21/20 10:05 Respiratory Rate 18 08/21/20 10:05 Blood Pressure 149/75 08/21/20 10:05 O2 Sat by Pulse Oximetry (%) 99 08/21/20 10:05 Constitutional: Yes: Anxious Eyes: Yes: WNL HENT: Yes: WNL Neck: Yes: WNL Cardiovascular: Yes: Regular Rate and Rhythm, Murmur (3/6 systolic murmur,), S1 (reduced in intensity), S2, S4 Labs: CBC, BMP 08/21/20 05:50 08/21/20 05:50 INR, PTT INR 0.97 (0.83-1.09) 08/18/20 15:40 Assessment/Plan Ms. Miles is an 89 yr old woman w a h/o of HTN, HDL, hypothyroidism, who presents to the ED for 1 month of SOB and continued chest tightness. hyperlipidemia EKG WNL BNP nl CE nl CXR large hiatal hernia ECHO ? severe ; however, mean gradient 14 mmHG PLan: On Synthroid; adjust as needed (low free T4). Repeat EKG. TNi < 0.02 x 2 Started atorvastatin 20 mg daily Maintain PO hydration. F/u BP serially. For ECHO (dedicated study of the aortic valve to assess discrepancy between possibly severe and relatively low pressure gradients).
--- NOTE | 2020-08-21 13:04 | ECHO ---
Name: BRIAN LEE Exam:Adult Echocardiogram Study Date: 08/21/2020 12:46 PM Age: 89 yrs Reason For Study: LIMITED STUDY DEDICATED TO [facility] ONLY Height: 60 in Weight: 133 lb BSA: 1.6 m2 MMode/2D Measurements & Calculations ACS: 1.2 cm LVOT diam: 2.0 cm Doppler Measurements & Calculations Ao V2 max: 231.1 cm/sec LV V1 max P.0 mmHg Ao max P.5 mmHg LV V1 mean P.3 mmHg Ao V2 mean: 162.8 cm/sec LV V1 max: 85.9 cm/sec Ao mean P.3 mmHg LV V1 mean: 52.9 cm/sec Ao V2 VTI: 41.9 cm LV V1 VTI: 17.9 cm OH(I,D): 1.3 cm2 OH(V,D): 1.1 cm2 SV(LVOT): 54.3 ml Procedure A two-dimensional transthoracic echocardiogram with color flow and Doppler was performed. Left Ventricle The left ventricular size, thickness and function are normal. Ejection Fraction = 65-70%. No regional wall motion abnormalities noted. Right Ventricle The right ventricle is normal in size and function. Atria Normal left and right atrial size and function. Mitral Valve There is no mitral valve stenosis. Aortic Valve Moderate valvular aortic stenosis. No aortic regurgitation is present. Pulmonic Valve The pulmonic valve is not well visualized. Great Vessels The aortic root is normal size. Pericardium/Pleura There is no pericardial effusion. Interpretation Summary The left ventricular size, thickness and function are normal The right ventricle is normal in size and function. Moderate valvular aortic stenosis. MD Emeterio Fan 08/21/2020 01:03 PM
[2020-08-21 13:48] VITALS: BP 144/77; PULSE 112; TEMP 97.9
--- NOTE | 2020-08-21 14:03 | EKG ---
Test Reason : Blood Pressure : / mmHG Vent. Rate : 090 BPM Atrial Rate : 090 BPM P-R Int : 130 ms QRS Dur : 078 ms QT Int : 394 ms P-R-T Axes : 042 -11 020 degrees QTc Int : 481 ms NORMAL SINUS RHYTHM NORMAL ECG WHEN COMPARED WITH ECG OF 19-AUG-2020 12:56, NO SIGNIFICANT CHANGE WAS FOUND Confirmed by ELDA MOLINA MD ([id number]) on 08/21/2020 2:03:26 PM Referred By: Confirmed By:ELDA MOLINA MD
--- NOTE | 2020-08-21 14:19 | PN ---
Physical Exam: SUBJECTIVE: Patient seen and examined at bedside, reports mild-mod chest pain overnight, non radiating, constant, pressure like. Denies any palpitations, SOB, nausea, vomiting, sweating, headache OBJECTIVE: Vital Signs Period Temp Pulse Resp BP Sys/Mcmahon Pulse Ox Last 24 Hr 97.8 F-98.5 F 84-112 18-20 99-149/51-77 97-100 GENERAL: AAOx3, in no acute distress HEENT: NCAT, PERRLA, EOMI, sclera anicteric, conjunctiva clear, oropharynx clear w/o exudates. MMM. NECK: Normal ROM, supple, no lymphadenopathy, JVD, or masses LUNGS: CTABL no wheezes/ rhonchi/ rales. No distress, speaks in full sentences. No increased work of breathing. HEART: RRR, normal S1 S2, 3/6 systolic ejection murmur, radiating to carotids. no /R/G, peripheral pulses 2+ and equal b/l ABDOMEN: Soft, non-tender, + BS. No guarding or rebound. MSK: ROM WNL, NO CVA tenderness EXTREMITIES: Normal inspection. No peripheral edema. No clubbing or cyanosis. NEUROLOGICAL: CN II-XII intact. Normal speech, gait not observed, no focal sensorimotor deficits. PSYCH: Normal mood, normal affect. SKIN: Warm, Dry, normal turgor, no rashes or lesions noted Laboratory Results - last 24 hr 08/20/20 08/20/20 08/20/20 06:00 06:00 19:00 WBC RBC Hgb Hct MCV MCH MCHC RDW Plt Count MPV Absolute Neuts (auto) Neutrophils % Lymphocytes % Monocytes % Eosinophils % Basophils % Nucleated RBC % Sodium Potassium Chloride Carbon Dioxide Anion Gap BUN Creatinine Est GFR (CKD-EPI)AfAm Est GFR (CKD-EPI)NonAf Random Glucose Calcium Phosphorus Magnesium Total Bilirubin AST ALT Alkaline Phosphatase Total Protein Albumin Urine Color Yellow Urine Appearance Clear Urine pH 5.0 D Ur Specific [place] 1.023 Urine Protein Negative Urine Glucose (UA) Negative Urine Ketones Negative Urine Blood Trace Urine Nitrite Negative Urine Bilirubin Negative Urine Urobilinogen 0.2 Ur Leukocyte Esterase 2+ H Urine WBC (Auto) 158 Urine RBC (Auto) 9 Urine Casts (Auto) 1 U Epithel Cells (Auto) 15 Urine Bacteria (Auto) 449 Thyroglobulin Antibody 3.4 H Thyroid Peroxidase Ab 131 H 117 H 08/21/20 08/21/20 05:50 05:50 WBC 6.2 RBC 3.84 Hgb 11.6 Hct 34.8 MCV 90.6 MCH 30.1 MCHC 33.2 RDW 14.0 Plt Count 130 L MPV 9.4 Absolute Neuts (auto) 3.1 Neutrophils % 50.3 Lymphocytes % 37.8 Monocytes % 10.5 H Eosinophils % 1.1 Basophils % 0.3 Nucleated RBC % 0 Sodium 142 Potassium 3.7 Chloride 110 H Carbon Dioxide 27 Anion Gap 5 L BUN 13.6 Creatinine 1.0 Est GFR (CKD-EPI)AfAm 58.25 Est GFR (CKD-EPI)NonAf 50.26 Random Glucose 80 Calcium 8.2 L Phosphorus 3.5 Magnesium 2.2 Total Bilirubin 0.3 AST 16 ALT 19 Alkaline Phosphatase 50 Total Protein 6.1 L Albumin 3.2 L Urine Color Urine Appearance Urine pH Ur Specific [place] Urine Protein Urine Glucose (UA) Urine Ketones Urine Blood Urine Nitrite Urine Bilirubin Urine Urobilinogen Ur Leukocyte Esterase Urine WBC (Auto) Urine RBC (Auto) Urine Casts (Auto) U Epithel Cells (Auto) Urine Bacteria (Auto) Thyroglobulin Antibody Thyroid Peroxidase Ab Active Medications Generic Name Dose Route Start Last Admin Trade Name Freq PRN Reason Stop Dose Admin Atorvastatin Calcium 20 mg 08/19/20 22:00 08/20/20 21:41 Lipitor - PO 20 mg HS OH Administration Enoxaparin Sodium 30 mg 08/19/20 10:00 08/21/20 10:01 Lovenox - SQ 30 mg DAILY OH Administration Levothyroxine Sodium 50 mcg 08/20/20 12:18 08/21/20 06:03 Synthroid - PO 50 mcg DAILY@0700 OH Administration Pantoprazole Sodium 40 mg 08/19/20 12:15 08/21/20 10:01 Protonix Iv IVPUSH 40 mg DAILY OH Administration ASSESSMENT/PLAN: 89 F with a PMH of HTN, hypothyroidism, presented to the ED for SOB and chest pain on exertion, admitted for acute on chronic dyspnea. #Acute on Chronic dyspnea on exertion - likely 2/2 chronic hypothyroidism vs aortic stenosis or combination of both - ECHO: EF 65%, Fibrocalcified aortic valve- severe , mean gradient 14mmhg - Repeat ECHO: mod stenosis - TSH 12.8, FT4 0.64: Continue home med, Levothyroxine 50 mcg - Cardiology is following, Dr. whatley, recs appreciated May need risk stratification with a stress test (or CTA or coronary angiogram, if is severe) if not done recently patient might need TAVR procedure with possible angio. with possible tx to [place] for further care Echo repeated: dedicated study of the aortic valve to assess discrepancy between possibly severe and relatively low pressure gradients #Ua suggestive of UTI - Ua LE 3+, WBC 347, Bacteria >9,000, Ucx: pending, No leukocytosis, afibrile and hemodynamically stable - we will wait for Ucx before starting antibiotics #Acute chest pain, r/o ACS - Trop negative x 2 - Echo: noted - Cardio is following - CXR: Hiatal hernia - will continue to monitor DVT ppx - Lovenox sq GI ppx: Protonix 40 mg IV FEN - No standing fluids - Continue to monitor electrolytes - Sodium controlled Diet Dispo - Will continue to monitor in Tele Visit type - Emergency Visit Emergency Visit: Yes ED Registration Date: 08/18/20 Care time: The patient presented to the Emergency Department on the above date and was hospitalized for further evaluation of their emergent condition. - New Patient This patient is new to me today: No - Critical Care Critical Care patient: No - Discharge Referral Referred to [facility] Med P.C.: No - Medication Review Med list reviewed for High Risk Meds patients 65 and older: Yes ATTENDING PHYSICIAN STATEMENT I saw and evaluated the patient. I reviewed the resident's note and discussed the case with the resident. I agree with the resident's findings and plan as documented. SUBJECTIVE: OBJECTIVE: ASSESSMENT AND PLAN:
--- NOTE | 2020-08-21 16:41 | DS ---
Physical Exam: SUBJECTIVE: Patient seen and examined at bedside, reports mild-mod chest pain overnight, non radiating, constant, pressure like. Denies any active chest pain, palpitations, SOB, nausea, vomiting, sweating, headache OBJECTIVE: Vital Signs Period Temp Pulse Resp BP Sys/Mcmahon Pulse Ox Last 24 Hr 97.8 F-98.5 F 84-112 18-20 99-149/51-77 97-100 PHYSICAL EXAM GENERAL: AAOx3, in no acute distress HEENT: NCAT, PERRLA, EOMI, sclera anicteric, conjunctiva clear, oropharynx clear w/o exudates. MMM. NECK: Normal ROM, supple, no lymphadenopathy, JVD, or masses LUNGS: CTABL no wheezes/ rhonchi/ rales. No distress, speaks in full sentences. No increased work of breathing. HEART: RRR, normal S1 S2, 3/6 systolic ejection murmur, radiating to carotids. no /R/G, peripheral pulses 2+ and equal b/l ABDOMEN: Soft, non-tender, + BS. No guarding or rebound. MSK: ROM WNL, NO CVA tenderness EXTREMITIES: Normal inspection. No peripheral edema. No clubbing or cyanosis. NEUROLOGICAL: CN II-XII intact. Normal speech, gait not observed, no focal sensorimotor deficits. PSYCH: Normal mood, normal affect. SKIN: Warm, Dry, normal turgor, no rashes or lesions noted LABS Laboratory Results - last 24 hr 08/20/20 08/20/20 08/20/20 06:00 06:00 19:00 WBC RBC Hgb Hct MCV MCH MCHC RDW Plt Count MPV Absolute Neuts (auto) Neutrophils % Lymphocytes % Monocytes % Eosinophils % Basophils % Nucleated RBC % Sodium Potassium Chloride Carbon Dioxide Anion Gap BUN Creatinine Est GFR (CKD-EPI)AfAm Est GFR (CKD-EPI)NonAf Random Glucose Calcium Phosphorus Magnesium Total Bilirubin AST ALT Alkaline Phosphatase Total Protein Albumin Urine Color Yellow Urine Appearance Clear Urine pH 5.0 D Ur Specific [place] 1.023 Urine Protein Negative Urine Glucose (UA) Negative Urine Ketones Negative Urine Blood Trace Urine Nitrite Negative Urine Bilirubin Negative Urine Urobilinogen 0.2 Ur Leukocyte Esterase 2+ H Urine WBC (Auto) 158 Urine RBC (Auto) 9 Urine Casts (Auto) 1 U Epithel Cells (Auto) 15 Urine Bacteria (Auto) 449 Thyroglobulin Antibody 3.4 H Thyroid Peroxidase Ab 131 H 117 H 08/21/20 08/21/20 05:50 05:50 WBC 6.2 RBC 3.84 Hgb 11.6 Hct 34.8 MCV 90.6 MCH 30.1 MCHC 33.2 RDW 14.0 Plt Count 130 L MPV 9.4 Absolute Neuts (auto) 3.1 Neutrophils % 50.3 Lymphocytes % 37.8 Monocytes % 10.5 H Eosinophils % 1.1 Basophils % 0.3 Nucleated RBC % 0 Sodium 142 Potassium 3.7 Chloride 110 H Carbon Dioxide 27 Anion Gap 5 L BUN 13.6 Creatinine 1.0 Est GFR (CKD-EPI)AfAm 58.25 Est GFR (CKD-EPI)NonAf 50.26 Random Glucose 80 Calcium 8.2 L Phosphorus 3.5 Magnesium 2.2 Total Bilirubin 0.3 AST 16 ALT 19 Alkaline Phosphatase 50 Total Protein 6.1 L Albumin 3.2 L Urine Color Urine Appearance Urine pH Ur Specific [place] Urine Protein Urine Glucose (UA) Urine Ketones Urine Blood Urine Nitrite Urine Bilirubin Urine Urobilinogen Ur Leukocyte Esterase Urine WBC (Auto) Urine RBC (Auto) Urine Casts (Auto) U Epithel Cells (Auto) Urine Bacteria (Auto) Thyroglobulin Antibody Thyroid Peroxidase Ab HOSPITAL COURSE: Date of Admission:08/18/20 89 F with a PMH of HTN, hypothyroidism, presented to the ED for SOB and chest pain on exertion, admitted for acute on chronic dyspnea likely 2/2 chronic hypothyroidism and aortic stenosis. Initial echo revealed EF 65%, Fibrocalcified aortic valve- severe , mean gradient 14mmhg, repeated echo for s dedicated study of the aortic valve. Repeat ECHO showed mod stenosis. Discussed with her nurse companion, Dr villarreal, who recommended that the patient can be discharged home, and no procedure needed at this time. patient will f/u with nurse companion as an outpatient and clinic, as per cardio to discharge the patient home with Low dose Toprol XL 12.5mg daily. 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 D/c'd her home with prescription for Levothyroxine 50 mcg and advised her to follow up with her PCP for repeat thyroid test in 6 weeks. Patient has difficulty (SOB) with her Activities of daily livings, she will benefit from home health aid. Patient is clinically stable to discharge and discharged her with instructions, referrals, and prescriptions as indicated below. Date of Discharge: 08/21/20 Minutes to complete discharge: 36 Discharge Summary Problems reviewed: Yes Reason For Visit: AORTIC VALVE STENOSIS Current Active Problems Aortic stenosis (Chronic) Condition: Stable - Instructions Diet, Activity, Other Instructions: YOUR VISIT You came to the hospital because you were experiencing difficulty breathing and chest discomfort. You were admitted to the hospital for care of these symptoms. It was found that you have aortic stenosis or an narrowing of a heart valve. While here you were seen by a nurse companion, whom you should continue to see after leaving the hospital. You are now stable and may return home. Your difficulty breathing could also be due to your thyroid not functioning properly. Please visit your primary care provider for further management and treatment. MEDICATIONS Please continue to take your home medications as prescribed. You have *NEW* medications Lipitor (atorvastatin) 20 mg by mouth every evening Toprol XL (Metoprolol succinate) 12.5 mg by mouth every day. Levothyroxine 50 mcg by mouth every day is your home dose and a refill has been provided. You need to recheck your Thyroid function within 6 weeks and need appropiate adjustment per the primary care doctor of your thyroid medication . ADDITIONAL CARE -Please make an appointment to see a nurse companion 1 week from today. A referral to Dr. Preciado has been provided. -Please make an appointment to see a primary care provider 1 week from today. Since you do not have one, you can call to schedule an appointment at the [facility] residents' clinic, located at [address] [place] [address]. If you would like to continue seeing Dr. Grossman please ask for a Tuesday morning appointment. You will need to repeat thyroid test with your primary care provider in 4-6 weeks to monitor your blood thyroid level. ADDITIONAL INFORMATION Please call [phone] or come directly to the emergency department if you experience recurrence of the symptoms that brought you to the hospital, unusual headache, vision change, shortness of breath, chest pain, numbness, tingling, loss of alertness/awareness, loss of function, unusual bleeding or any alarming symptoms. Referrals: Kolton Orozco MD [Staff Physician] - 1 Week (, Hypothyroidism, ) Saman Preciado MD [Staff Physician] - 1 Week Disposition: HOME - Home Medications Comprehensive Discharge Medication List: Ambulatory Orders Aspirin [ASA -] 81 mg PO DAILY 08/19/20 Atenolol [Tenormin -] 50 mg PO DAILY 08/19/20 Atorvastatin Ca [Lipitor] 20 mg PO HS #30 tablet 08/20/20 Levothyroxine [Synthroid -] 50 mcg PO DAILY@0700 #30 tablet 08/20/20 Metoprolol Succinate [Toprol Xl] 12.5 mg PO DAILY 30 Days #30 tab.er.24h 08/21/20 This patient is new to me today: No Emergency Visit: Yes ED Registration Date: 08/18/20 Care time: The patient presented to the Emergency Department on the above date and was hospitalized for further evaluation of their emergent condition. Critical Care patient: No - Discharge Referral Referred to [facility] Med P.C.: No ATTENDING PHYSICIAN STATEMENT I saw and evaluated the patient. I reviewed the resident's note and discussed the case with the resident. I agree with the resident's findings and plan as documented. SUBJECTIVE: OBJECTIVE: ASSESSMENT AND PLAN:
--- NOTE | 2020-08-21 16:42 | PN ---
Teaching Attending Note Name of Resident: Gardenia Grossman ATTENDING PHYSICIAN STATEMENT I saw and evaluated the patient. I reviewed the resident's note and discussed the case with the resident. I agree with the resident's findings and plan as documented. SUBJECTIVE: Patient is comfortable with NAD OBJECTIVE: Vital Signs Temperature 97.9 F 08/21/20 13:47 Pulse Rate 112 H 08/21/20 13:47 Respiratory Rate 20 08/21/20 13:47 Blood Pressure 144/77 08/21/20 13:47 O2 Sat by Pulse Oximetry (%) 99 08/21/20 10:05 PE: per resident's note CBCD WBC 6.2 K/mm3 (4.0-10.0) 08/21/20 05:50 RBC 3.84 M/mm3 (3.60-5.2) 08/21/20 05:50 Hgb 11.6 GM/dL (10.7-15.3) 08/21/20 05:50 Hct 34.8 % (32.4-45.2) 08/21/20 05:50 MCV 90.6 fl (80-96) 08/21/20 05:50 MCHC 33.2 g/dl (32.0-36.0) 08/21/20 05:50 RDW 14.0 % (11.6-15.6) 08/21/20 05:50 Plt Count 130 K/MM3 (134-434) L 08/21/20 05:50 MPV 9.4 fl (7.5-11.1) 08/21/20 05:50 CMP Sodium 142 mmol/L (136-145) 08/21/20 05:50 Potassium 3.7 mmol/L (3.5-5.1) 08/21/20 05:50 Chloride 110 mmol/L (98-107) H 08/21/20 05:50 Carbon Dioxide 27 mmol/L (21-32) 08/21/20 05:50 Anion Gap 5 MMOL/L (8-16) L 08/21/20 05:50 BUN 13.6 mg/dL (7-18) 08/21/20 05:50 Creatinine 1.0 mg/dL (0.55-1.3) 08/21/20 05:50 Random Glucose 80 mg/dL (74-106) 08/21/20 05:50 Calcium 8.2 mg/dL (8.5-10.1) L 08/21/20 05:50 Total Bilirubin 0.3 mg/dL (0.2-1) 08/21/20 05:50 AST 16 U/L (15-37) 08/21/20 05:50 ALT 19 U/L (13-61) 08/21/20 05:50 Alkaline Phosphatase 50 U/L (45-117) 08/21/20 05:50 Total Protein 6.1 g/dl (6.4-8.2) L 08/21/20 05:50 Albumin 3.2 g/dl (3.4-5.0) L 08/21/20 05:50 CARDIAC ENZYMES Creatine Kinase 88 U/L (26-192) 08/18/20 15:40 Troponin I < 0.02 ng/ml (0.00-0.05) 08/18/20 21:14 Current Medications Generic Name Dose Route Start Last Admin Trade Name Freq PRN Reason Stop Dose Admin Atorvastatin Calcium 20 mg 08/19/20 22:00 08/20/20 21:41 Lipitor - PO 20 mg HS OH Administration Enoxaparin Sodium 30 mg 08/19/20 10:00 08/21/20 10:01 Lovenox - SQ 30 mg DAILY OH Administration Levothyroxine Sodium 50 mcg 08/20/20 12:18 08/21/20 06:03 Synthroid - PO 50 mcg DAILY@0700 OH Administration Pantoprazole Sodium 40 mg 08/19/20 12:15 08/21/20 10:01 Protonix Iv IVPUSH 40 mg DAILY OH Administration Laboratory Tests 08/18/20 08/18/20 08/19/20 15:40 21:14 06:00 Hemoglobin A1c % Troponin I < 0.02 < 0.02 Triglycerides 157 H Cholesterol 218 H Total LDL Cholesterol 117 H HDL Cholesterol 78 H TSH Free T4 Thyroglobulin Antibody Thyroid Peroxidase Ab COVID-19 ([facility]EVL) Not detected 08/19/20 08/19/20 08/20/20 07:56 07:56 06:00 Hemoglobin A1c % 5.2 Troponin I Triglycerides Cholesterol Total LDL Cholesterol HDL Cholesterol TSH 12.80 H Free T4 0.64 L Thyroglobulin Antibody 3.4 H Thyroid Peroxidase Ab 117 H COVID-19 (AVEL) ASSESSMENT AND PLAN: This patient is an 89yoF with Pmhx of HTN not on medications who presents for evaluation of progressive dyspnea on exertion and chest discomfort x1 month. # Acute over chronic Dyspnea on exertion with chest pain; most likely due to hypothyroidism , will continue with levoxyl 50mcg since the patient has not been taking her thyroid medicatios , will need to re-evaluate her thyroid function after 6 weeks to reassess whether higher dose of levoxyl needed or not. TSh is >12. #Acute chest pain r/o ACS ; trops are negative so far , cardio consult; echo reports severe stenosis, discussed with cardio will have another echo done in am to access severity of the stenosis. repeat echo reports moderate stenosis, discussed with minesweeping officer Dr villarreal , patient can be discharged home, no procedure needed at this time. #moderate Aortic stenosis on the 2nd echo. 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
== END 2020-08-21 17:38 | disposition home or self-care (01) | DRG 307 ==
LOC: JER 13:38 → JERBED 18:32 → J4S 08-19 04:54
PROVIDERS: ADMIT Internal Medicine; ATTEND Internal Medicine
DX: I35.0 Nonrheumatic aortic (valve) stenosis (principal); E03.9 Hypothyroidism, unspecified; I10 Essential (primary) hypertension; K21.9 Gastro-esophageal reflux disease without esophagitis; K44.9 Diaphragmatic hernia without obstruction or gangrene; R07.9 Chest pain, unspecified
CPT/HCPCS: 36415; 71046-TC-FY; 80053; 80061; 81003; 82550; 83036; 83721; 83735; 83880; 84100; 84439; 84443; 84484; 85025; 85610; 86376; 86800; 87077; 87086; 93005; 93010; 93306-TC; 99285-25; U0003

== ENCOUNTER 2021-04-23 08:33 | Inpatient (IN) | payer OTHER ==
[2021-04-23 09:37] LABS: BASO % 0.5 % (0-2.0); HEMATOCRIT 23.6 % (32.4-45.2); HEMOGLOBIN 7.1 GM/dL (10.7-15.3); LYMPH % 22.9 % (8-40); MCHC 30.1 g/dl (32.0-36.0); MEAN CELL VOLUME 64.3 fl (80-96); MEAN PLT VOLUME 8.9 fl (7.5-11.1); MONO % 10.8 % (3.8-10.2); NEUT % 64.8 % (42.8-82.8); PLATELET COUNT 281 K/MM3 (134-434); RBC 3.68 M/mm3 (3.60-5.2); RDW 18.3 % (11.6-15.6)
[2021-04-23 09:42] LABS: MCH 19.4 pg (25.7-33.7)
[2021-04-23 09:43] LABS: INR 1.04 (0.83-1.09); PROTHROMBIN TIME (PATIENT) 12.6 SEC (9.7-13.0)
[2021-04-23 09:46] LABS: ACTIVATED PTT 30.1 SECONDS (25.2-36.5)
[2021-04-23 09:54] LABS: CHLORIDE 108 mmol/L (98-107); SODIUM 141 mmol/L (136-145)
[2021-04-23 09:56] LABS: CALCIUM 8.8 mg/dL (8.5-10.1)
[2021-04-23 09:57] LABS: ALBUMIN 3.6 g/dl (3.4-5.0); ANION GAP 7 MMOL/L (8-16); CO2 25 mmol/L (21-32); GLUCOSE,RANDOM 92 mg/dL (74-106)
[2021-04-23 10:00] LABS: CREATININE 0.9 mg/dL (0.55-1.3); SGOT/AST 36 U/L (15-37); SGPT/ALT 42 U/L (13-61)
[2021-04-23 10:01] LABS: BILIRUBIN,TOTAL 0.5 mg/dL (0.2-1)
[2021-04-23 10:02] LABS: TOT PROT 7.1 g/dl (6.4-8.2)
[2021-04-23 10:03] LABS: ALK PHOS 274 U/L (45-117)
[2021-04-23] MEDS ORDERED: PANTOPRAZOLE SODIUM 40 MG VIAL IVPUSH SCH (11:30)
[2021-04-23 11:35] VITALS: BMI 25.3
[2021-04-23 14:09] LABS: ANISOCYTOSIS 1+; MACROCYTOSIS 0; OVALOCYTE 2+; PLATELET ESTIMATE NORMAL
[2021-04-23 17:42] LABS: BASO % 0.6 % (0-2.0); EOS % 1.1 % (0-4.5); HEMATOCRIT 27.3 % (32.4-45.2); HEMOGLOBIN 8.6 GM/dL (10.7-15.3); LYMPH % 21.4 % (8-40); MCHC 31.4 g/dl (32.0-36.0); MEAN CELL VOLUME 66.8 fl (80-96); MEAN PLT VOLUME 9.2 fl (7.5-11.1); MONO % 11.7 % (3.8-10.2); NEUT % 65.2 % (42.8-82.8); PLATELET COUNT 238 K/MM3 (134-434); RBC 4.09 M/mm3 (3.60-5.2); WHITE BLOOD COUNT 6.1 K/mm3 (4.0-10.0)
[2021-04-23] MEDS ORDERED: ATORVASTATIN CA 20 MG TABLET (FP) PO SCH (22:00)
[2021-04-24 03:42] VITALS: PULSE 81
[2021-04-24 04:19] VITALS: TEMP 98
[2021-04-24] MEDS ORDERED: LEVOTHYROXINE NA 50 MCG TABLET (FP) PO SCH (07:00)
[2021-04-24 07:30] LABS: BASO % 0.6 % (0-2.0); EOS % 1.9 % (0-4.5); HEMATOCRIT 27.6 % (32.4-45.2); HEMOGLOBIN 8.8 GM/dL (10.7-15.3); LYMPH % 25.4 % (8-40); MCH 21.2 pg (25.7-33.7); MCHC 31.9 g/dl (32.0-36.0); MEAN CELL VOLUME 66.5 fl (80-96); MEAN PLT VOLUME 9.1 fl (7.5-11.1); MONO % 11.8 % (3.8-10.2); NEUT % 60.3 % (42.8-82.8); PLATELET COUNT 228 K/MM3 (134-434); RBC 4.15 M/mm3 (3.60-5.2); RDW 20.9 % (11.6-15.6); WHITE BLOOD COUNT 5.9 K/mm3 (4.0-10.0)
[2021-04-24 07:48] LABS: ALBUMIN 3.2 g/dl (3.4-5.0); CALCIUM 8.2 mg/dL (8.5-10.1)
[2021-04-24 07:49] LABS: BLOOD UREA NITROGEN 7.1 mg/dL (7-18); MAGNESIUM 2.3 mg/dL (1.8-2.4)
[2021-04-24 07:51] LABS: BILIRUBIN,TOTAL 0.9 mg/dL (0.2-1); CREATININE 0.8 mg/dL (0.55-1.3); PHOSPHOROUS 3.5 mg/dL (2.5-4.9); TOT PROT 6.3 g/dl (6.4-8.2)
[2021-04-24 08:26] VITALS: BP 122/61
[2021-04-24] MEDS ORDERED: FLU VACCINE (FLULAVAL) PF 60 MCG/0.5 ML SYRINGE 2020-2021 IM ONE (10:00)
[2021-04-24] MEDS ORDERED: PNEUMOC 13-VAL CONJ-DIP CRM/PF 0.5 ML DISP.SYRIN IM ONE (10:00)
[2021-04-24] MEDS ORDERED: PANTOPRAZOLE 40 MG TABLET PO SCH (10:00)
[2021-04-24] MEDS ORDERED: ATENOLOL 50 MG TABLET (FP) PO SCH (10:00)
[2021-04-24] MEDS ORDERED: metoPROLOL SUCCINATE 25 MG TAB.SR.24H (FP) PO SCH (10:00)
== END 2021-04-24 19:30 | disposition short-term general hospital (02) | DRG 812 ==
LOC: JER 08:33 → JERBED 09:57 → OBSVTOIN 11:20 → J4W 04-24 00:01
PROC: 30233N1 Transfusion of Nonautologous Red Blood Cells into Peripheral Vein, Percutaneous Approach (ICD-10-PCS; principal; 2021-04-23)
DX: D64.9 Anemia, unspecified (principal); K92.2 Gastrointestinal hemorrhage, unspecified; E03.9 Hypothyroidism, unspecified; I25.10 Atherosclerotic heart disease of native coronary artery without angina pectoris; I10 Essential (primary) hypertension; K21.9 Gastro-esophageal reflux disease without esophagitis; E78.5 Hyperlipidemia, unspecified; I35.0 Nonrheumatic aortic (valve) stenosis; R07.9 Chest pain, unspecified
CPT/HCPCS: 36415; 36430; 71045-TC-FY; 80053; 80061; 82272; 82728; 82977; 83036; 83550; 83721; 83735; 84100; 84443; 84484; 85025; 85045; 85610; 85730; 86850; 86900; 86901; 86922; 93005; 93010; 99285-25; C9803; G0378; P9058; U0003; U0005

== ENCOUNTER 2021-09-30 14:28 | Emergency (ER) | payer OTHER ==
[2021-09-30 14:42] VITALS: TEMP 97.6; BMI 25.4
[2021-09-30] MEDS ORDERED: ACETAMINOPHEN 1000 MG/100 ML VIAL IVPB ONE (17:40)
[2021-09-30] MEDS ORDERED: ACETAMINOPHEN INJECTION 100 ML IVPB ONE (17:41)
[2021-09-30 18:29] LABS: BASO % 0.3 % (0-2.0); EOS % 1.6 % (0-4.5); HEMATOCRIT 41.4 % (32.4-45.2); HEMOGLOBIN 13.9 GM/dL (10.7-15.3); LYMPH % 23.6 % (8-40); MCH 30.1 pg (25.7-33.7); MCHC 33.5 g/dl (32.0-36.0); MEAN CELL VOLUME 89.9 fl (80-96); MONO % 9.9 % (3.8-10.2); NEUT % 64.6 % (42.8-82.8); PLATELET COUNT 172 10^3/uL (134-434); RDW 14.9 % (11.6-15.6); WHITE BLOOD COUNT 8.4 K/mm3 (4.0-10.0)
[2021-09-30 18:35] LABS: INR 0.99 (0.83-1.09); PROTHROMBIN TIME (PATIENT) 11.6 SEC (9.7-13.0)
[2021-09-30 18:38] LABS: ACTIVATED PTT 30.4 SECONDS (25.2-36.5)
[2021-09-30 18:54] LABS: CHLORIDE 109 mmol/L (98-107); SODIUM 141 mmol/L (136-145)
[2021-09-30 18:56] LABS: ALBUMIN 3.3 g/dl (3.4-5.0); ANION GAP 9 MMOL/L (8-16); BLOOD UREA NITROGEN 13.7 mg/dL (7-18); CALCIUM 8.8 mg/dL (8.5-10.1); CO2 23 mmol/L (21-32); GLUCOSE,RANDOM 70 mg/dL (74-106)
[2021-09-30 18:59] LABS: CREATININE 1.1 mg/dL (0.55-1.3); SGOT/AST 24 U/L (15-37); SGPT/ALT 28 U/L (13-61)
[2021-09-30 19:01] LABS: BILIRUBIN,TOTAL 0.4 mg/dL (0.2-1); TOT PROT 6.5 g/dl (6.4-8.2)
[2021-09-30 19:02] LABS: ALK PHOS 70 U/L (45-117)
[2021-09-30] MEDS ORDERED: morphine CARPU-JECT 2 MG/1 ML DISP.SYRIN IVPUSH ONE (19:06)
[2021-09-30] MEDS ORDERED: LIDOCAINE 5% TOPICAL PATCH TP ONE (19:06)
[2021-09-30] MEDS ORDERED: morphine SULFATE 4 MG/ML VIAL ONE (19:27)
[2021-09-30] MEDS ORDERED: LIDOCAINE 5% TOPICAL PATCH ONE (19:29)
[2021-09-30 19:40] VITALS: BP 162/62
[2021-09-30 21:04] VITALS: PULSE 75
[2021-10-01] MEDS ORDERED: LIDOCAINE PATCH REMOVAL MC SCH (07:00)
== END 2021-09-30 21:07 | disposition home or self-care (01) ==
LOC: JER 14:28
PROC: 3E033NZ Introduction of Analgesics, Hypnotics, Sedatives into Peripheral Vein, Percutaneous Approach (ICD-10-PCS; principal; 2021-09-30)
PROC: 3E033GC Introduction of Other Therapeutic Substance into Peripheral Vein, Percutaneous Approach (ICD-10-PCS; 2021-09-30)
DX: M54.50 Low back pain, unspecified (principal)
CPT/HCPCS: 36415; 71045-TC-FY; 80053; 84484; 85025; 85610; 85730; 93005; 93010; 93970-TC; 96374; 96375; 99284-25; J0131

== ENCOUNTER 2022-02-06 12:08 | Emergency (ER) | payer OTHER ==
[2022-02-06 12:13] VITALS: TEMP 97; BMI 29.1
[2022-02-06 13:02] VITALS: BP 174/84; PULSE 87
== END 2022-02-06 13:22 | disposition home or self-care (01) ==
LOC: JER 12:08
DX: I10 Essential (primary) hypertension (principal)
CPT/HCPCS: 93005; 93010; 99283-25